=== PATIENT | female | born 1950 | race Caucasian/White ===

== ENCOUNTER 2019-08-23 22:21 | Observation (INO) | payer MEDICARE ==
--- NOTE | 2019-08-24 01:39 | XRay Report ---
CHEST 2 VIEWS INDICATION / CLINICAL INFORMATION: syncope. COMPARISON: None available. FINDINGS: SUPPORT DEVICES: None. HEART / MEDIASTINUM: Cardiomegaly with enlargement of bilateral pulmonary arteries suggesting pulmona ry arterial hypertension. Probable ASD closure device in place. LUNGS / PLEURA: Mild vascular congestion. No focal pulmonary consolidation. No large pleural effusion . No pneumothorax. ADDITIONAL FINDINGS: No significant additional findings. IMPRESSION: 1. Cardiomegaly with dilated pulmonary arteries suggesting pulmonary arterial hypertension. Mild vasc ular congestion. Signer Name: Shazia Silva MD Signed: 08/24/2019 1:35 AM Workstation Name: [id number]
[2019-08-24 02:00] LABS: Basophils # (Auto) 0.1 K/mm3 (0.0-0.1); Basophils % (Auto) 0.8 % (0.0-1.8); Eosinophils # (Auto) 0.2 K/mm3 (0.0-0.4); Eosinophils % (Auto) 3.3 % (0.0-4.3); Hematocrit 38.5 % (30.3-42.9); Hemoglobin 12.9 gm/dl (10.1-14.3); Lymphocytes # (Auto) 2.1 K/mm3 (1.2-5.4); Lymphocytes % (Auto) 29.3 % (13.4-35.0); Mean Corpuscular HGB Conc 34 % (30-34); Mean Corpuscular Volume 85 fl (79-97); Monocytes # (Auto) 0.5 K/mm3 (0.0-0.8); Monocytes % (Auto) 6.5 % (0.0-7.3); Platelet Count 243 K/mm3 (140-440); Red Blood Count 4.51 M/mm3 (3.65-5.03); Red Cell Distribution Width 15.5 % (13.2-15.2)
[2019-08-24 02:14] LABS: Alanine Aminotransferase 39 units/L (7-56); Albumin 4.3 g/dL (3.9-5); BUN/Creatinine Ratio 22; Bilirubin,Direct 0.2 mg/dL (0-0.2); Blood Urea Nitrogen 13 mg/dL (7-17); Calcium 8.8 mg/dL (8.4-10.2); Hemolysis Index 4
[2019-08-24 02:47] LABS: INR 1.07 (0.87-1.13); Partial Thromboplastin Time 30.3 Sec. (24.2-36.6)
--- NOTE | 2019-08-24 02:52 | Emergency Department Report ---
ED Syncope HPI - General Chief Complaint: Dizziness Stated Complaint: SYNCOPAL EPISODE Time Seen by Provider: 08/24/19 00:58 Source: patient, EMS, RN notes reviewed Exam Limitations: language barrier (pt speaks Laotian) - History of Present Illness Initial Comments: 69-year-old female with history of hypertension, diabetes, "hole in heart", and possibly vertigo, presents to ED following a syncopal episode earlier tonight. Patient states that she gets dizzy often. Patient reports she was given medication for this dizziness which she has run out of. States she was told ngoc t it was due to a problem inside her ear. Today, patient states she felt dizzy, like all of her previous episodes, however patient states she fell to the ground with this dizziness. She denies loss of consciousness. She states she hurt her neck when she fell. Patient has a history of chronic neck and back pain for which she is scheduled to begin physical therapy. Patient states she is on Eliq uis for "a hole" in her heart. Patient denies having an irregular heartbeat. Patient denies headache, nausea or vomiting. She denies any weakness, speech changes, vision changes, numbness or tingling in the face or extremities. Patient states that she took her blood pressure at home systolic BP was in the 200s so she called EMS. Patient states she took her blood pressure medication prior to ED arrival. Patient states she is feeling much better at this time and is ready to go home since her blood pressure has improved. 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 Negative: blurred vision, confusion, diaphoresis, nausea, rapid heart beat Context: standing Loss of Consciousness: no loss of consciousness Current Symptoms: dizziness. denies: blurred vision, chest pain, diaphoresis, headache, loss of bladder control, nausea - Related Data Allergies/Adverse Reactions: Allergies aspirin Allergy (Verified 08/23/19 22:55) Unknown codeine Allergy (Verified 08/23/19 22:55) Unknown Penicillins Allergy (Verified 08/23/19 22:55) Unknown ED Review of Systems ROS: Stated complaint: SYNCOPAL EPISODE Other details as noted in HPI Comment: All other systems reviewed and negative Constitutional: denies: chills, fever Respiratory: denies: cough, shortness of breath Cardiovascular: denies: chest pain, palpitations Gastrointestinal: denies: abdominal pain, nausea, vomiting, diarrhea Musculoskeletal: other (reports neck pain) Neurological: denies: headache, weakness, numbness, paresthesias ED Past Medical Hx - Past Medical History Hx Hypertension: Yes Hx Diabetes: Yes ED Physical Exam - General Limitations: No Limitations General appearance: alert, in no apparent distress - Head Head exam: Present: atraumatic, normocephalic, normal inspection - Eye Eye exam: Present: normal appearance, PERRL, EOMI - ENT ENT exam: Present: mucous membranes moist - Neck Neck exam: Present: normal inspection, tenderness (bilateral posterior paraspinal), full ROM - Respiratory Respiratory exam: Present: normal lung sounds bilaterally. Absent: respiratory distress - Cardiovascular Cardiovascular Exam: Present: normal rhythm, bradycardia - GI/Abdominal GI/Abdominal exam: Present: soft. Absent: distended, tenderness - Extremities Exam Extremities exam: Present: normal inspection. Absent: pedal edema, calf tenderness - Back Exam Back exam: Present: normal inspection. Absent: vertebral tenderness - Neurological Exam Neurological exam: Present: alert, oriented X3, CN II-XII intact, normal gait. Absent: motor sensory deficit - Psychiatric Psychiatric exam: Present: normal affect, normal mood - Skin Skin exam: Present: warm, dry, intact, normal color ED Course Vital Signs 08/23/19 08/24/19 08/24/19 23:36 03:36 03:39 Temperature 98.0 F 98 F 98 F Pulse Rate 52 L 69 69 Respiratory 16 20 18 Rate Blood Pressure 165/67 129/78 Blood Pressure 129/78 [Left] O2 Sat by Pulse 93 98 98 Oximetry ED Medical Decision Making - Lab Data Result diagrams: 08/24/19 01:35 08/24/19 01:35 - EKG Data -: EKG Interpreted by Ca EKG shows normal: axis, intervals, QRS complexes, ST-T waves Rate: bradycardia (rate 51) - EKG Data Interpretation: other (atrial flutter) - Radiology Data Radiology results: report reviewed, image reviewed - Medical Decision Making 59-year-old female presents to ED following what sounds like a syncopal episode. Patient has no neuro deficits at this time. CT head and neck are both unremarkable for any acute findings. CXR normal. Labs are normal, including troponin and d-dimer. EKG shows atrial flutter with a rate of 51. No previous EKG for comparison. This may be the reason that patient is on Eliquis. Patient is not on any beta blockers, only takes lisinopril pressure. Also takes furosemide. It is unclear if her dizziness could possibly be due to her bradycardia. Patient has not been hypotensive. Blood pressure is normal. Will admit to hospitalist for further evaluation. - Differential Diagnosis arrythmia, intracranial bleed, c-spine fx, ACS Critical care attestation.: If time is entered above; I have spent that time in minutes in the direct care of this critically ill patient, excluding procedure time. ED Disposition Clinical Impression: Syncope Disposition: OP ADMIT IP TO THIS HOSP Is pt being admited?: Yes Condition: Stable Instructions: Syncope (ED) Referrals: PRIMARY CARE, [Primary Care Provider] - 3-5 Days Time of Disposition: 03:36
--- NOTE | 2019-08-24 03:04 | Cat Scan Report ---
CT CERVICAL SPINE WITHOUT CONTRAST INDICATION / CLINICAL INFORMATION: pain. TECHNIQUE: Axial CT images were obtained through the cervical spine. Sagittal and coronal reformatted images wer e produced. All CT scans at this location are performed using CT dose reduction for ALARA by means of automated exposure control. COMPARISON: None available. FINDINGS: VERTEBRAE: No significant abnormality. ALIGNMENT: No significant abnormality. DISC SPACES: Mild disc height loss with anterior osteophytes from C5 through C7. FACET JOINTS: Mild left uncovertebral and facet hypertrophy at C5-C6 without significant foraminal na rrowing. CRANIOCERVICAL JUNCTION:No significant abnormality. SPINAL CANAL: No significant abnormality. PARASPINAL SOFT TISSUES: No significant abnormality. ADDITIONAL FINDINGS: None. LUNG APICES: No significant abnormality of visualized lungs. IMPRESSION: 1. No acute abnormality identified within the cervical spine. Mild degenerative disc disease. Signer Name: Shazia Silva MD Signed: 08/24/2019 3:00 AM Workstation Name: [id number]
--- NOTE | 2019-08-24 03:08 | Cat Scan Report ---
CT head/brain wo con INDICATION: dizziness, head injury. TECHNIQUE: Routine CT head without contrast. All CT scans at this location are performed using CT dos e reduction for ALARA by means of automated exposure control. COMPARISON: None. FINDINGS: BRAIN / INTRACRANIAL CONTENTS: No acute hemorrhage, mass effect, midline shift, or hydrocephalus. No appreciable acute large territorial or lacunar infarct. A small focal area of hypoattenuation in the deep cerebral white matter of the right parietal lobe has the appearance of encephalomalacia. ORBITS: No significant abnormality of visualized orbits. SINUSES / MASTOIDS: No significant abnormality of visualized sinuses and mastoid air cells. ADDITIONAL FINDINGS: None. IMPRESSION: 1. No acute intracranial abnormality on noncontrast CT of the brain. 2. Small area of encephalomalacia in the right parietal lobe. Signer Name: Shazia Silva MD Signed: 08/24/2019 3:03 AM Workstation Name: [id number]
--- NOTE | 2019-08-24 05:44 | History and Physical Report ---
History of Present Illness Chief complaint: I was dizzy and that I fell down History of present illness: 69-year-old woman with history of hypertension diabetes, "a hole in her heart", atrial flutter who presents to the hospital stating that she is been having multiple episodes of dizziness.. She had taken medication for dizziness in the past which she has run out of. States that she has been feeling dizzy on and off for quite a while, 4 weeks or perhaps months. However unlike the previous episodes this time the patient was so dizzy that she fell to the ground, she did not lose consciousness but she states that she hurt her neck with the fall. She also has a history of chronic neck and back pain for which she is scheduled to start physical therapy., She takes Eliquis given the hole in her heart. She a lso notes that she rushed to the hospital because her blood pressure was very high with a systolic in the 200s when she checked at home Past History Past Medical History: other (Atrial flutter, hypertension, diabetes, insulin- dependent) Past Surgical History: Other (States that she had a heart procedure done by Dr. Cardozo of [facility]) Social history: no significant social history, lives with family Family history: other (She states that she has multiple family members with h eart problems, she is unable to give further details) Medications and Allergies Allergies Allergy/AdvReac Type Severity Reaction Status Date / Time aspirin Allergy Unknown Verified 08/23/19 22:55 codeine Allergy Unknown Verified 08/23/19 22:55 Penicillins Allergy Unknown Verified 08/23/19 22:55 Home Medications Medication Instructions Recorded Confirmed Last Taken Type Apixaban [Eliquis] 5 mg PO BID 08/24/19 08/24/19 Unknown History Furosemide [Lasix TAB] 40 mg PO QDAY 08/24/19 08/24/19 Unknown History Insulin Glargine [Lantus VIAL] 35 units SQ QHS 08/24/19 08/24/19 Unknown History Lisinopril [Zestril TAB] 10 mg PO 08/24/19 Unknown History Lispro Insulin [HumaLOG] 20 units SQ QAC 08/24/19 08/24/19 Unknown History Simvastatin 40 mg PO QDAY 08/24/19 08/24/19 Unknown History Review of Systems All systems: negative Constitutional: no fatigue Ears, nose, mouth and throat: no ear pain Breasts: deferred Cardiovascular: no chest pain Respiratory: no cough Gastrointestinal: no abdominal pain Rectal: no pain Musculoskeletal: no neck stiffness Integumentary: no rash Neurological: no head injury Psychiatric: no anxiety Endocrine: no cold intolerance Hematologic/Lymphatic: no easy bruising Allergic/Immunologic: no urticaria Exam - Constitutional Vitals: Temp Pulse Resp BP Pulse Ox 98 F 69 18 129/78 98 08/24/19 03:39 08/24/19 03:39 08/24/19 03:39 08/24/19 03:39 08/24/19 03:39 General appearance: Present: no acute distress, well-nourished - EENT Eyes: Present: PERRL ENT: hearing intact, clear oral mucosa - Neck Neck: Present: supple, normal ROM - Respiratory Respiratory effort: normal Respiratory: bilateral: CTA - Cardiovascular Heart Sounds: Present: S1 & S2. Absent: rub, click - Extremities Extremities: pulses symmetrical, No edema Peripheral Pulses: within normal limits - Abdominal General gastrointestinal: Present: soft, non-tender, non-distended, normal bowel sounds Female genitourinary: Present: normal - Integumentary Integumentary: Present: clear, warm, dry - Musculoskeletal Musculoskeletal: gait normal, strength equal bilaterally - Psychiatric Psychiatric: appropriate mood/affect, intact judgment & insight - Neurologic Neurologic: CNII-XII intact, moves all extremities Results - Labs CBC & Chem 7: 08/24/19 01:35 08/24/19 01:35 Labs: Laboratory Last Values WBC 7.2 K/mm3 (4.5-11.0) 08/24/19 01:35 RBC 4.51 M/mm3 (3.65-5.03) 08/24/19 01:35 Hgb 12.9 gm/dl (10.1-14.3) 08/24/19 01:35 Hct 38.5 % (30.3-42.9) 08/24/19 01:35 MCV 85 fl (79-97) 08/24/19 01:35 MCH 29 pg (28-32) 08/24/19 01:35 MCHC 34 % (30-34) 08/24/19 01:35 RDW 15.5 % (13.2-15.2) H 08/24/19 01:35 Plt Count 243 K/mm3 (140-440) 08/24/19 01:35 Lymph % (Auto) 29.3 % (13.4-35.0) 08/24/19 01:35 [place] % (Auto) 6.5 % (0.0-7.3) 08/24/19 01:35 Eos % (Auto) 3.3 % (0.0-4.3) 08/24/19 01:35 Baso % (Auto) 0.8 % (0.0-1.8) 08/24/19 01:35 Lymph # 2.1 K/mm3 (1.2-5.4) 08/24/19 01:35 [place] # 0.5 K/mm3 (0.0-0.8) 08/24/19 01:35 Eos # 0.2 K/mm3 (0.0-0.4) 08/24/19 01:35 Baso # 0.1 K/mm3 (0.0-0.1) 08/24/19 01:35 Seg Neutrophils % 60.1 % (40.0-70.0) 08/24/19 01:35 Seg Neutrophils # 4.4 K/mm3 (1.8-7.7) 08/24/19 01:35 PT 13.6 Sec. (12.2-14.9) 08/24/19 01:35 INR 1.07 (0.87-1.13) 08/24/19 01:35 APTT 30.3 Sec. (24.2-36.6) 08/24/19 01:35 D-Dimer 184.44 ng/mlDDU (0-234) 08/24/19 01:35 Sodium 145 mmol/L (137-145) 08/24/19 01:35 Potassium 4.8 mmol/L (3.6-5.0) 08/24/19 01:35 Chloride 105.6 mmol/L (98-107) 08/24/19 01:35 Carbon Dioxide 27 mmol/L (22-30) 08/24/19 01:35 Anion Gap 17 mmol/L 08/24/19 01:35 BUN 13 mg/dL (7-17) 08/24/19 01:35 Creatinine 0.6 mg/dL (0.7-1.2) L 08/24/19 01:35 Estimated GFR > 60 ml/min 08/24/19 01:35 BUN/Creatinine Ratio 22 % 08/24/19 01:35 Glucose 182 mg/dL (65-100) H 08/24/19 01:35 Calcium 8.8 mg/dL (8.4-10.2) 08/24/19 01:35 Total Bilirubin 0.70 mg/dL (0.1-1.2) 08/24/19 01:35 Direct Bilirubin 0.2 mg/dL (0-0.2) 08/24/19 01:35 Indirect Bilirubin 0.5 mg/dL 08/24/19 01:35 AST 20 units/L (5-40) 08/24/19 01:35 ALT 39 units/L (7-56) 08/24/19 01:35 Alkaline Phosphatase 50 units/L (35-129) 08/24/19 01:35 Troponin T < 0.010 ng/mL (0.00-0.029) 08/24/19 01:35 Total Protein 7.0 g/dL (6.3-8.2) 08/24/19 01:35 Albumin 4.3 g/dL (3.9-5) 08/24/19 01:35 Albumin/Globulin Ratio 1.6 % 08/24/19 01:35 Assessment and Plan Assessment and plan: 69-year-old woman with history of hypertension diabetes, "a hole in her heart", atrial flutter who presents to the hospital stating that she is been having multiple episodes of dizziness.. She presents after a fall which she feels was caused by dizziness, she did not lose consciousness, but she did hurt her neck. Chest x-ray cardiomegaly with this dilated pulmonary arteries suggesting pulmonary arterial hypertension, mild vascular congestion -CT C-spine, no acute abnormalities identified within the cervical spine mild degenerative disc disease CT head no acute intracranial abnormality, small area of encephalomalacia in the right parietal lobe Transient autonomic imbalance/dizziness Patient is not on any AV karlos agents, cardiology consult, monitor on telemetry, echocardiogram Bradycardia/atrial flutter Patient is not on any AV karlos agents, cardiology consult, monitor on telemetry, echocardiogram "hole in the heart" Follow-up echo Hypertensive urgency Optimize BP meds, avoid AV karlos blocking agents BPmax was 165/67 w pulse of 52, IV BP meds prn, recent blood pressure is normal Type 2 diabetes SSI Preventative health counseling performed for 17 minutes DVT prophylaxis; fully anticoagulated Plan of care discussed with patient/family: Yes
[2019-08-24] MEDS ORDERED: DEXTROSE 50% IN WATER (25GM) 50 ML SYRINGE IV PRN (05:45)
[2019-08-24] MEDS ORDERED: ACETAMINOPHEN 325 MG TAB PO PRN (05:48)
[2019-08-24] MEDS ORDERED: ONDANSETRON 4 MG/2 ML INJ IV PRN (05:48)
[2019-08-24] MEDS ORDERED: INSULIN LISPRO 100 UNIT/ML SUB-Q ONE ×5 (07:30→08:52)
[2019-08-24 07:55] LABS: Bacteria,Urine 1+ /HPF (Negative); Bilirubin,Urine NEG (Negative); Blood,Urine NEG (Negative); Color,Urine Yellow (Yellow); Protein,Urine <15 mg/dL mg/dL (Negative); Urobilinogen,Urine < 2.0 mg/dL (<2.0)
[2019-08-24] MEDS: INSULIN LISPRO 100 UNIT/ML SUB-Q SCH ×7 (08:53→21:21)
--- NOTE | 2019-08-24 10:34 | Consultation ---
<SHAAN PARMAR - Last Filed: 08/24/19 10:34> History of Present Illness Consult date: 08/24/19 Consult reason: other (Aflutter, Near syncope) History of present illness: This is a 69-year old woman with persistent atrial flutter status post unsuccessful attempt at ablation and patient declined repeat attempt. Patient is not on beta blockers due to slow ventricular conduction response. Anticoagulated with eliquis. Patient has a history of atrial septal defect status post closure in 2011. Her latest echocardiogram reports a normal left ventricular systolic function, ejection fraction 50%. Co-morbidities includes hypertension, diabetes and hyperlipidemia. Patient presents to the hospital with dizziness, admitted with near syncope. Patient reports intermittent dizziness for several months. Blood pressure 165/67 on presentation. Patient denies chest pain, unusual shortness of breath and palpitations. Patient denies loss of consciousness. 12 lead ECG is atrial flutter with a slow ventricular response, rate 51. Past History Past Medical History: other (Atrial flutter, hypertension, diabetes, insulin- dependent) Social history: no significant social history, lives with family Family history: other (She states that she has multiple family members with heart problems, she is unable to give further details) Medications and Allergies Allergies Allergy/AdvReac Type Severity Reaction Status Date / Time aspirin Allergy Unknown Verified 08/23/19 22:55 codeine Allergy Unknown Verified 08/23/19 22:55 Penicillins Allergy Unknown Verified 08/23/19 22:55 Home Medications Medication Instructions Recorded Confirmed Last Taken Type Apixaban [Eliquis] 5 mg PO BID 08/24/19 08/24/19 Unknown History Furosemide [Lasix TAB] 40 mg PO QDAY 08/24/19 08/24/19 Unknown History Insulin Glargine [Lantus VIAL] 35 units SQ QHS 08/24/19 08/24/19 Unknown History Lisinopril [Zestril TAB] 10 mg PO 08/24/19 Unknown History Lispro Insulin [HumaLOG] 20 units SQ QAC 08/24/19 08/24/19 Unknown History Simvastatin 40 mg PO QDAY 08/24/19 08/24/19 Unknown History Active Meds: Active Medications Acetaminophen (Tylenol) 650 mg PO Q4H PRN PRN Reason: Pain MILD(1-3)/Fever >100.5/NGUYEN Apixaban (Eliquis) 5 mg PO BID [facility]; Protocol Dextrose (D50w (25gm) Syringe) 50 ml IV PRN PRN PRN Reason: Hypoglycemia Furosemide (Lasix) 40 mg PO QDAY [facility] Insulin Glargine (Lantus) 35 units SUB-Q QHS [facility] Insulin Human Lispro (Humalog) 20 unit SUB-Q QAC [facility] Last Admin: 08/24/19 08:53 Dose: 20 unit Documented by: Insulin Human Lispro (Humalog) 0 unit SUB-Q ACHS [facility]; Protocol Last Admin: 08/24/19 08:53 Dose: 2 unit Documented by: Lisinopril (Zestril) 10 mg PO DAILY [facility] Ondansetron HCl (Zofran) 4 mg IV Q8H PRN PRN Reason: Nausea And Vomiting Pravastatin Sodium (Pravachol) 80 mg PO QHS [facility] Sodium Chloride (Sodium Chloride Flush Syringe 10 Ml) 10 ml IV BID [facility] Sodium Chloride (Sodium Chloride Flush Syringe 10 Ml) 10 ml IV PRN PRN PRN Reason: LINE FLUSH Physical Examination Vital Signs Temp Pulse Resp BP Pulse Ox 98.0 F 52 L 16 165/67 93 08/23/19 23:36 08/23/19 23:36 08/23/19 23:36 08/23/19 23:36 08/23/19 23:36 General appearance: no acute distress HEENT: Positive: PERRL Neck: Positive: trachea midline Cardiac: Positive: irregularly irregular Lungs: Positive: Normal Breath Sounds Neuro: Positive: Grossly Intact Abdomen: Positive: Soft Extremities: Absent: edema Results 08/24/19 01:35 08/24/19 01:35 Cardiac Enzymes 08/24/19 Range/Units 01:35 AST 20 (5-40) units/L Coagulation 08/24/19 Range/Units 01:35 PT 13.6 (12.2-14.9) Sec. INR 1.07 (0.87-1.13) APTT 30.3 (24.2-36.6) Sec. CBC 08/24/19 Range/Units 01:35 WBC 7.2 (4.5-11.0) K/mm3 RBC 4.51 (3.65-5.03) M/mm3 Hgb 12.9 (10.1-14.3) gm/dl Hct 38.5 (30.3-42.9) % Plt Count 243 (140-440) K/mm3 Lymph # 2.1 (1.2-5.4) K/mm3 [place] # 0.5 (0.0-0.8) K/mm3 Eos # 0.2 (0.0-0.4) K/mm3 Baso # 0.1 (0.0-0.1) K/mm3 Comprehensive Metabolic Panel 08/24/19 Range/Units 01:35 Sodium 145 (137-145) mmol/L Potassium 4.8 (3.6-5.0) mmol/L Chloride 105.6 (98-107) mmol/L Carbon Dioxide 27 (22-30) mmol/L BUN 13 (7-17) mg/dL Creatinine 0.6 L (0.7-1.2) mg/dL Glucose 182 H (65-100) mg/dL Calcium 8.8 (8.4-10.2) mg/dL Direct Bilirubin 0.2 (0-0.2) mg/dL Indirect Bilirubin 0.5 mg/dL AST 20 (5-40) units/L ALT 39 (7-56) units/L Alkaline Phosphatase 50 (35-129) units/L Total Protein 7.0 (6.3-8.2) g/dL Albumin 4.3 (3.9-5) g/dL Assessment and Plan Near syncope Atrial flutter, persistent on eliquis for oral anticoagulation rate controlled without beta blockers Hypertension Diabetes HLP Recommend: Check TSH, free T4 and a magnesium. Check carotids. Continue telemetry monitoring. <JARAD IRENE - Last Filed: 08/24/19 20:51> Medications and Allergies Active Meds: Active Medications Acetaminophen (Tylenol) 650 mg PO Q4H PRN PRN Reason: Pain MILD(1-3)/Fever >100.5/NGUYEN Apixaban (Eliquis) 5 mg PO BID [facility]; Protocol Last Admin: 08/24/19 14:40 Dose: 5 mg Documented by: Dextrose (D50w (25gm) Syringe) 50 ml IV PRN PRN PRN Reason: Hypoglycemia Furosemide (Lasix) 40 mg PO QDAY [facility] Last Admin: 08/24/19 14:40 Dose: 40 mg Documented by: Insulin Glargine (Lantus) 35 units SUB-Q QHS [facility] Insulin Human Lispro (Humalog) 20 unit SUB-Q QAC [facility] Last Admin: 08/24/19 17:34 Dose: 20 unit Documented by: Insulin Human Lispro (Humalog) 0 unit SUB-Q ACHS [facility]; Protocol Last Admin: 08/24/19 17:35 Dose: 3 unit Documented by: Lisinopril (Zestril) 10 mg PO DAILY [facility] Last Admin: 08/24/19 14:40 Dose: 10 mg Documented by: Ondansetron HCl (Zofran) 4 mg IV Q8H PRN PRN Reason: Nausea And Vomiting Pravastatin Sodium (Pravachol) 80 mg PO QHS [facility] Sodium Chloride (Sodium Chloride Flush Syringe 10 Ml) 10 ml IV BID [facility] Last Admin: 08/24/19 14:40 Dose: 10 ml Documented by: Sodium Chloride (Sodium Chloride Flush Syringe 10 Ml) 10 ml IV PRN PRN PRN Reason: LINE FLUSH Physical Examination Vital Signs Temp Pulse Resp BP Pulse Ox 98.0 F 52 L 16 165/67 93 08/23/19 23:36 08/23/19 23:36 08/23/19 23:36 08/23/19 23:36 08/23/19 23:36 Results 08/24/19 01:35 08/24/19 01:35 Cardiac Enzymes 08/24/19 Range/Units 01:35 AST 20 (5-40) units/L Coagulation 08/24/19 Range/Units 01:35 PT 13.6 (12.2-14.9) Sec. INR 1.07 (0.87-1.13) APTT 30.3 (24.2-36.6) Sec. CBC 08/24/19 Range/Units 01:35 WBC 7.2 (4.5-11.0) K/mm3 RBC 4.51 (3.65-5.03) M/mm3 Hgb 12.9 (10.1-14.3) gm/dl Hct 38.5 (30.3-42.9) % Plt Count 243 (140-440) K/mm3 Lymph # 2.1 (1.2-5.4) K/mm3 [place] # 0.5 (0.0-0.8) K/mm3 Eos # 0.2 (0.0-0.4) K/mm3 Baso # 0.1 (0.0-0.1) K/mm3 Comprehensive Metabolic Panel 08/24/19 Range/Units 01:35 Sodium 145 (137-145) mmol/L Potassium 4.8 (3.6-5.0) mmol/L Chloride 105.6 (98-107) mmol/L Carbon Dioxide 27 (22-30) mmol/L BUN 13 (7-17) mg/dL Creatinine 0.6 L (0.7-1.2) mg/dL Glucose 182 H (65-100) mg/dL Calcium 8.8 (8.4-10.2) mg/dL Direct Bilirubin 0.2 (0-0.2) mg/dL Indirect Bilirubin 0.5 mg/dL AST 20 (5-40) units/L ALT 39 (7-56) units/L Alkaline Phosphatase 50 (35-129) units/L Total Protein 7.0 (6.3-8.2) g/dL Albumin 4.3 (3.9-5) g/dL Assessment and Plan I have seen and evaluated the patient and agree with the assessment and plan. The patient presents with Near syncope. The patient has a hsitory of persistent atrial flutter on eliquis for anticoagulation, HTN, DM2, and HLD. Recommend check TSH, free T4 and magnesium. Check carotid dopplers. Continue current medical therapy for treatment of atrial flutter and eliquis.
--- NOTE | 2019-08-24 14:28 | Vascular Lab Report ---
BILATERAL CAROTID DOPPLER ULTRASOUND INDICATION : Dizziness, syncope TECHNIQUE: Grayscale and color Doppler imaging performed through the neck. COMPARISON: None FINDINGS: Right: There is no significant atherosclerotic disease. Peak systolic velocity in the CCA is 64 cm/ s with end-diastolic velocity of 15 cm/s. Peak systolic velocity in the proximal ICA is 19 cm/s with end-diastolic velocity of 34 cm/s. ICA to CCA ratio is less than 2. There is antegrade flow in the E CA and the vertebral artery. Left: There is mild elongated echogenic plaque in the carotid bulb. Peak systolic velocity in the CCA is 68 cm/s with end-diastolic velocity of 14 cm/s. Peak systolic velocity in the proximal ICA is 92 cm/s with end-diastolic velocity of 26 cm/s. ICA to CCA ratio is less than 2. There is antegrade amish w in the ECA and the vertebral artery. IMPRESSION: No hemodynamically significant stenosis by NASCET criteria. There is less than 50% lumina l narrowing in the bilateral carotid systems. Signer Name: Valentin Oliva Jr, MD Signed: 08/24/2019 2:23 PM Workstation Name: [id number]
[2019-08-24] MEDS: FUROSEMIDE 40 MG TAB PO SCH (14:40)
[2019-08-24] MEDS: APIXABAN 5 MG TAB PO SCH ×2 (14:40→21:20)
[2019-08-24] MEDS: LISINOPRIL 10 MG TAB PO SCH (14:40)
--- NOTE | 2019-08-24 15:03 | Progress Note ---
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 She gives a history of fall, she did not lose consciousness, so CT spine was done. Unable to do brain MRI because of noncompatible Lower back metal nerve stimulator * Chest x-ray cardiomegaly with this dilated pulmonary arteries suggesting pulmonary arterial hypertension, mild vascular congestion * CT C-spine, no acute abnormalities identified within the cervical spine mild degenerative disc disease * CT head no acute intracranial abnormality, small area of encephalomalacia in the right parietal lobe * Carotid US dopper reports no hemodynically significant stenosis -Transient autonomic imbalance/dizziness, ECHO pending -Bradycardia/atrial flutter, Patient is not on any AV karlos agents, cardiology consult, input noted, monitor on telemetry, echocardiogram pending -Hypertensive urgency, Optimize BP meds, avoid AV karlos blocking agents, BPmax was 165/67 w pulse of 52, IV BP meds prn -Type 2 diabetes: ada diet, SSI DVT prophylaxis; fully anticoagulated Prolonged inpatient services 35 minutes History Interval history: Patient was seen and examined. Follow-up on current diagnosis of near Syncope and dizziness. No overnight events reported to me. Patient denies any chest pain, shortness breath, nausea/vomiting or severe headaches. Imaging, nursing note, chart, labs and old chart reviewed. Discussed with patient using friend John as [place] vacuum drum drier operator per patient request. Hospitalist Physical - Physical exam Narrative exam: Gen: WDWN, NAD, Awake, Alert, Orientated HEENT: NCAT, EOMI, PERRL, OP Clear Neck: supple, no adenopathy, no thyromegaly, no JVD CVS/Heart: regular irregular, normal S1S2, pulses present bilaterally Chest/Lungs: diminished bs Bilaterally, Symmetrical chest expansion, good air entry bilaterally GI/Abdomen: soft, NTND, good bowel sounds, no guarding or rebound /Bladder: no suprapubic tenderness, no CVA or paraspinal tenderness Extermity/Skin: no c/c/e, no obvious rash MSK: FROM x 4 Neuro: CN 2-12 grossly intact, no new focal deficits Psych: calm - Constitutional Vitals: Temp Pulse Resp BP Pulse Ox 98 F 51 L 21 160/63 96 08/24/19 03:39 08/24/19 09:16 08/24/19 09:16 08/24/19 09:16 08/24/19 09:16 General appearance: Present: no acute distress Results - Labs CBC & Chem 7: 08/24/19 01:35 08/24/19 01:35 Labs: Laboratory Last Values WBC 7.2 K/mm3 (4.5-11.0) 08/24/19 01:35 RBC 4.51 M/mm3 (3.65-5.03) 08/24/19 01:35 Hgb 12.9 gm/dl (10.1-14.3) 08/24/19 01:35 Hct 38.5 % (30.3-42.9) 08/24/19 01:35 MCV 85 fl (79-97) 08/24/19 01:35 MCH 29 pg (28-32) 08/24/19 01:35 MCHC 34 % (30-34) 08/24/19 01:35 RDW 15.5 % (13.2-15.2) H 08/24/19 01:35 Plt Count 243 K/mm3 (140-440) 08/24/19 01:35 Lymph % (Auto) 29.3 % (13.4-35.0) 08/24/19 01:35 [place]er % (Auto) 6.5 % (0.0-7.3) 08/24/19 01:35 Eos % (Auto) 3.3 % (0.0-4.3) 08/24/19 01:35 Baso % (Auto) 0.8 % (0.0-1.8) 08/24/19 01:35 Lymph # 2.1 K/mm3 (1.2-5.4) 08/24/19 01:35 Greer # 0.5 K/mm3 (0.0-0.8) 08/24/19 01:35 Eos # 0.2 K/mm3 (0.0-0.4) 08/24/19 01:35 Baso # 0.1 K/mm3 (0.0-0.1) 08/24/19 01:35 Seg Neutrophils % 60.1 % (40.0-70.0) 08/24/19 01:35 Seg Neutrophils # 4.4 K/mm3 (1.8-7.7) 08/24/19 01:35 PT 13.6 Sec. (12.2-14.9) 08/24/19 01:35 INR 1.07 (0.87-1.13) 08/24/19 01:35 APTT 30.3 Sec. (24.2-36.6) 08/24/19 01:35 D-Dimer 184.44 ng/mlDDU (0-234) 08/24/19 01:35 Sodium 145 mmol/L (137-145) 08/24/19 01:35 Potassium 4.8 mmol/L (3.6-5.0) 08/24/19 01:35 Chloride 105.6 mmol/L (98-107) 08/24/19 01:35 Carbon Dioxide 27 mmol/L (22-30) 08/24/19 01:35 Anion Gap 17 mmol/L 08/24/19 01:35 BUN 13 mg/dL (7-17) 08/24/19 01:35 Creatinine 0.6 mg/dL (0.7-1.2) L 08/24/19 01:35 Estimated GFR > 60 ml/min 08/24/19 01:35 BUN/Creatinine Ratio 22 % 08/24/19 01:35 Glucose 182 mg/dL (65-100) H 08/24/19 01:35 POC Glucose 196 (70-105) H 08/24/19 07:58 Hemoglobin A1c 7.7 % (4-6) H 08/24/19 06:00 Calcium 8.8 mg/dL (8.4-10.2) 08/24/19 01:35 Total Bilirubin 0.70 mg/dL (0.1-1.2) 08/24/19 01:35 Direct Bilirubin 0.2 mg/dL (0-0.2) 08/24/19 01:35 Indirect Bilirubin 0.5 mg/dL 08/24/19 01:35 AST 20 units/L (5-40) 08/24/19 01:35 ALT 39 units/L (7-56) 08/24/19 01:35 Alkaline Phosphatase 50 units/L (35-129) 08/24/19 01:35 Troponin T < 0.010 ng/mL (0.00-0.029) 08/24/19 05:52 Total Protein 7.0 g/dL (6.3-8.2) 08/24/19 01:35 Albumin 4.3 g/dL (3.9-5) 08/24/19 01:35 Albumin/Globulin Ratio 1.6 % 08/24/19 01:35 Urine Color Yellow (Yellow) 08/24/19 07:45 Urine Turbidity Clear (Clear) 08/24/19 07:45 Urine pH 7.0 (5.0-7.0) 08/24/19 07:45 Ur Specific [place] 1.011 (1.003-1.030) 08/24/19 07:45 Urine Protein <15 mg/dl mg/dL (Negative) 08/24/19 07:45 Urine Glucose (UA) Neg mg/dL (Negative) 08/24/19 07:45 Urine Ketones Neg mg/dL (Negative) 08/24/19 07:45 Urine Blood Neg (Negative) 08/24/19 07:45 Urine Nitrite Neg (Negative) 08/24/19 07:45 Urine Bilirubin Neg (Negative) 08/24/19 07:45 Urine Urobilinogen < 2.0 mg/dL (<2.0) 08/24/19 07:45 Ur Leukocyte Esterase Tr (Negative) 08/24/19 07:45 Urine WBC (Auto) 4.0 /HPF (0.0-6.0) 08/24/19 07:45 Urine RBC (Auto) 3.0 /HPF (0.0-6.0) 08/24/19 07:45 U Epithel Cells (Auto) 1.0 /HPF (0-13.0) 08/24/19 07:45 Urine Bacteria (Auto) 1+ /HPF (Negative) 08/24/19 07:45 Active Medications - Current Medications Current Medications: Generic Name Dose Route Start Last Admin Trade Name Freq PRN Reason Stop Dose Admin Acetaminophen 650 mg 08/24/19 05:48 Tylenol PO Q4H PRN Pain MILD(1-3)/Fever >100.5/NGUYEN Apixaban 5 mg 08/24/19 10:00 08/24/19 14:40 Eliquis PO 5 mg BID MANOHAR Administration Protocol Dextrose 50 ml 08/24/19 05:45 D50w (25gm) Syringe IV PRN PRN Hypoglycemia Furosemide 40 mg 08/24/19 10:00 08/24/19 14:40 Lasix PO 40 mg QDAY MANOHAR Administration Insulin Glargine 35 units 08/24/19 22:00 Lantus SUB-Q QHS [facility] Insulin Human Lispro 20 unit 08/24/19 07:30 08/24/19 14:41 Humalog SUB-Q Not Given QAC [facility] Insulin Human Lispro 0 unit 08/24/19 07:30 08/24/19 14:41 Humalog SUB-Q Not Given ACHS [facility] Protocol Lisinopril 10 mg 08/24/19 10:00 08/24/19 14:40 Zestril PO 10 mg DAILY MANOHAR Administration Ondansetron HCl 4 mg 08/24/19 05:48 Zofran IV Q8H PRN Nausea And Vomiting Pravastatin Sodium 80 mg 08/24/19 22:00 Pravachol PO QHS [facility] Sodium Chloride 10 ml 08/24/19 10:00 08/24/19 14:40 Sodium Chloride Flush Syringe 10 Ml IV 10 ml BID MANOHAR Administration Sodium Chloride 10 ml 08/24/19 05:48 Sodium Chloride Flush Syringe 10 Ml IV PRN PRN LINE FLUSH
[2019-08-24] MEDS ORDERED: PRAVASTATIN 80 MG TAB PO SCH (22:00)
[2019-08-24] MEDS ORDERED: INSULIN GLARGINE 100 UNITS/ML SUB-Q SCH (22:00)
[2019-08-24] MEDS ORDERED: POLYETHYLENE GLYCOL 3350 17 GM POWDER PO PRN (23:55)
[2019-08-25] MEDS: DOCUSATE SODIUM 100 MG CAP PO SCH ×2 (00:07→09:28)
[2019-08-25] MEDS: FUROSEMIDE 40 MG TAB PO SCH (09:28)
[2019-08-25] MEDS: LISINOPRIL 10 MG TAB PO SCH (09:28)
[2019-08-25] MEDS: APIXABAN 5 MG TAB PO SCH (09:28)
[2019-08-25] MEDS: INSULIN LISPRO 100 UNIT/ML SUB-Q SCH ×5 (09:29→13:19)
--- NOTE | 2019-08-25 11:09 | Progress Note ---
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 She gives a history of fall, she did not lose consciousness, so CT spine was done. Unable to do brain MRI because of noncompatible Lower back metal nerve stimulator * Chest x-ray cardiomegaly with this dilated pulmonary arteries suggesting pulmonary arterial hypertension, mild vascular congestion * CT C-spine, no acute abnormalities identified within the cervical spine mild degenerative disc disease * CT head no acute intracranial abnormality, small area of encephalomalacia in the right parietal lobe * Carotid US dopper reports no hemodynically significant stenosis -Transient autonomic imbalance/dizziness: treat conservatively, to rule out if bradycardia/aflutter causing the dizziness and ECHO still pending -Bradycardia/atrial flutter, Patient is not on any AV karlos agents, cardiology consult, input noted, monitor on telemetry, -Hypertensive urgency, Optimize BP meds, avoid AV karlos blocking agents, BPmax was 165/67 w pulse of 52, IV BP meds prn -Type 2 diabetes mellitus: ada diet, SSI -DVT prophylaxis; fully anticoag Disposition: continue observational care, d/c once cleared by Cardiology and ECHO is read. History Interval history: Patient was seen and examined. Follow-up on current diagnosis of near Syncope and dizziness. No overnight events reported to me. Patient denies any chest feliciano n, shortness breath, nausea/vomiting or severe headaches. Imaging, nursing note, chart, labs and old chart reviewed. Discussed with patient using friend John as [employer] call center trainer using patient's phone per patient request. Hospitalist Physical - Physical exam Narrative exam: Gen: WDWN, NAD, Awake, Alert, Orientated HEENT: NCAT, EOMI, PERRL, OP Clear Neck: supple, no adenopathy, no thyromegaly, no JVD CVS/Heart: regular irregular, normal S1S2, pulses present bilaterally Chest/Lungs: diminished bs Bilaterally, Symmetrical chest expansion, good air entry bilaterally GI/Abdomen: soft, NTND, good bowel sounds, no guarding or rebound /Bladder: no suprapubic tenderness, no CVA or paraspinal tenderness Extermity/Skin: no c/c/e, no obvious rash MSK: FROM x 4 Neuro: CN 2-12 grossly intact, no new focal deficits Psych: calm - Constitutional Vitals: Temp Pulse Resp BP Pulse Ox 98.2 F 52 L 16 134/58 96 08/25/19 07:55 08/25/19 07:55 08/25/19 07:55 08/25/19 07:55 08/25/19 07:55 General appearance: Present: no acute distress Results - Labs CBC & Chem 7: 08/24/19 01:35 08/24/19 01:35 Labs: Laboratory Last Values WBC 7.2 K/mm3 (4.5-11.0) 08/24/19 01:35 RBC 4.51 M/mm3 (3.65-5.03) 08/24/19 01:35 Hgb 12.9 gm/dl (10.1-14.3) 08/24/19 01:35 Hct 38.5 % (30.3-42.9) 08/24/19 01:35 MCV 85 fl (79-97) 08/24/19 01:35 MCH 29 pg (28-32) 08/24/19 01:35 MCHC 34 % (30-34) 08/24/19 01:35 RDW 15.5 % (13.2-15.2) H 08/24/19 01:35 Plt Count 243 K/mm3 (140-440) 08/24/19 01:35 Lymph % (Auto) 29.3 % (13.4-35.0) 08/24/19 01:35 [place] % (Auto) 6.5 % (0.0-7.3) 08/24/19 01:35 Eos % (Auto) 3.3 % (0.0-4.3) 08/24/19 01:35 Baso % (Auto) 0.8 % (0.0-1.8) 08/24/19 01:35 Lymph # 2.1 K/mm3 (1.2-5.4) 08/24/19 01:35 Rhea # 0.5 K/mm3 (0.0-0.8) 08/24/19 01:35 Eos # 0.2 K/mm3 (0.0-0.4) 08/24/19 01:35 Baso # 0.1 K/mm3 (0.0-0.1) 08/24/19 01:35 Seg Neutrophils % 60.1 % (40.0-70.0) 08/24/19 01:35 Seg Neutrophils # 4.4 K/mm3 (1.8-7.7) 08/24/19 01:35 PT 13.6 Sec. (12.2-14.9) 08/24/19 01:35 INR 1.07 (0.87-1.13) 08/24/19 01:35 APTT 30.3 Sec. (24.2-36.6) 08/24/19 01:35 D-Dimer 184.44 ng/mlDDU (0-234) 08/24/19 01:35 Sodium 145 mmol/L (137-145) 08/24/19 01:35 Potassium 4.8 mmol/L (3.6-5.0) 08/24/19 01:35 Chloride 105.6 mmol/L (98-107) 08/24/19 01:35 Carbon Dioxide 27 mmol/L (22-30) 08/24/19 01:35 Anion Gap 17 mmol/L 08/24/19 01:35 BUN 13 mg/dL (7-17) 08/24/19 01:35 Creatinine 0.6 mg/dL (0.7-1.2) L 08/24/19 01:35 Estimated GFR > 60 ml/min 08/24/19 01:35 BUN/Creatinine Ratio 22 % 08/24/19 01:35 Glucose 182 mg/dL (65-100) H 08/24/19 01:35 POC Glucose 203 (70-105) H 08/25/19 08:05 Hemoglobin A1c 7.7 % (4-6) H 08/24/19 06:00 Calcium 8.8 mg/dL (8.4-10.2) 08/24/19 01:35 Magnesium 2.00 mg/dL (1.7-2.3) 08/24/19 14:36 Total Bilirubin 0.70 mg/dL (0.1-1.2) 08/24/19 01:35 Direct Bilirubin 0.2 mg/dL (0-0.2) 08/24/19 01:35 Indirect Bilirubin 0.5 mg/dL 08/24/19 01:35 AST 20 units/L (5-40) 08/24/19 01:35 ALT 39 units/L (7-56) 08/24/19 01:35 Alkaline Phosphatase 50 units/L (35-129) 08/24/19 01:35 Troponin T < 0.010 ng/mL (0.00-0.029) 08/24/19 14:36 Total Protein 7.0 g/dL (6.3-8.2) 08/24/19 01:35 Albumin 4.3 g/dL (3.9-5) 08/24/19 01:35 Albumin/Globulin Ratio 1.6 % 08/24/19 01:35 TSH 1.530 mlU/mL (0.270-4.200) 08/24/19 14:36 Free T4 1.53 ng/dL (0.76-1.46) H 08/24/19 14:36 Urine Color Yellow (Yellow) 08/24/19 07:45 Urine Turbidity Clear (Clear) 08/24/19 07:45 Urine pH 7.0 (5.0-7.0) 08/24/19 07:45 Ur Specific [place] 1.011 (1.003-1.030) 08/24/19 07:45 Urine Protein <15 mg/dl mg/dL (Negative) 08/24/19 07:45 Urine Glucose (UA) Neg mg/dL (Negative) 08/24/19 07:45 Urine Ketones Neg mg/dL (Negative) 08/24/19 07:45 Urine Blood Neg (Negative) 08/24/19 07:45 Urine Nitrite Neg (Negative) 08/24/19 07:45 Urine Bilirubin Neg (Negative) 08/24/19 07:45 Urine Urobilinogen < 2.0 mg/dL (<2.0) 08/24/19 07:45 Ur Leukocyte Esterase Tr (Negative) 08/24/19 07:45 Urine WBC (Auto) 4.0 /HPF (0.0-6.0) 08/24/19 07:45 Urine RBC (Auto) 3.0 /HPF (0.0-6.0) 08/24/19 07:45 U Epithel Cells (Auto) 1.0 /HPF (0-13.0) 08/24/19 07:45 Urine Bacteria (Auto) 1+ /HPF (Negative) 08/24/19 07:45 Active Medications - Current Medications Current Medications: Generic Name Dose Route Start Last Admin Trade Name Freq PRN Reason Stop Dose Admin Acetaminophen 650 mg 08/24/19 05:48 08/25/19 00:07 Tylenol PO 650 mg Q4H PRN Administration Pain MILD(1-3)/Fever >100.5/NGUYEN Apixaban 5 mg 08/24/19 10:00 08/25/19 09:28 Eliquis PO 5 mg BID MANOHAR Administration Protocol Dextrose 50 ml 08/24/19 05:45 D50w (25gm) Syringe IV PRN PRN Hypoglycemia Docusate Sodium 100 mg 08/24/19 23:45 08/25/19 09:28 Colace PO 100 mg BID MANHOAR Administration Furosemide 40 mg 08/24/19 10:00 08/25/19 09:28 Lasix PO 40 mg QDAY MANOHAR Administration Insulin Glargine 35 units 08/24/19 22:00 08/24/19 21:21 Lantus SUB-Q Not Given QHS [facility] Insulin Human Lispro 20 unit 08/24/19 07:30 08/25/19 09:30 Humalog SUB-Q 20 unit [facility] Administration Insulin Human Lispro 0 unit 08/24/19 07:30 08/25/19 09:35 Humalog SUB-Q Not Given ACHS [facility] Protocol Lisinopril 10 mg 08/24/19 10:00 08/25/19 09:28 Zestril PO 10 mg DAILY MANOHAR Administration Ondansetron HCl 4 mg 08/24/19 05:48 Zofran IV Q8H PRN Nausea And Vomiting Polyethylene Glycol 17 gm 08/24/19 23:55 Miralax 3350 PO QDAY PRN Constipation Pravastatin Sodium 80 mg 08/24/19 22:00 08/24/19 21:20 Pravachol PO 80 mg QHS MANOHAR Administration Sodium Chloride 10 ml 08/24/19 10:00 08/25/19 09:29 Sodium Chloride Flush Syringe 10 Ml IV 10 ml BID MANOHAR Administration Sodium Chloride 10 ml 08/24/19 05:48 Sodium Chloride Flush Syringe 10 Ml IV PRN PRN LINE FLUSH
--- NOTE | 2019-08-25 11:14 | Discharge Summary ---
Providers - Providers Date of Admission: 08/24/19 05:48 Date of discharge: 08/25/19 Attending physician: ZEFERINO VALADEZ 08/24/19 05:39 Consult to Cardiology [CONS] Routine Consulting Provider: ERIC HARRIS Reason For Exam: aflutter, javi, near syncope 08/24/19 05:50 Consult to Dietitian/Nutrition [CONS] Routine Physician Instructions: Reason For Exam: Reason for Consult: Diet education Primary care physician: DIRECTOR OF INSTITUTIONAL RESEARCH Hospitalization Condition: Stable Hospital course: Patient is a 69-year-old Laotian speaking woman with a history of persistent atrial flutter with unsuccessful ablation on anticoagulation with Eliquis, hypertension, type 2 DM, 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 She gives a history of fall, she did not lose consciousness, so CT spine was done. Patient symptoms most likely due to underlying Sick Sinus Syndrome and pacemaker will be done on Thursday, hold Eliquis per Cardiolgy. * Chest x-ray cardiomegaly with this dilated pulmonary arteries suggesting pulmonary arterial hypertension, mild vascular congestion * CT C-spine, no acute abnormalities identified within the cervical spine mild degenerative disc disease * CT head no acute intracranial abnormality, small area of encephalomalacia in the right parietal lobe * Carotid US dopper reports no hemodynically significant stenosis Discharge Diagnoses: -Sick Sinus Syndome with Bradycardia causing -Transient autonomic imbalance and dizziness -Persistent Atrial flutter -Hypertensive urgency -Type 2 diabetes mellitus -H/o CVA with right sided deficits -H/O Dyslipidemia -H/O ASD closure Disposition: CO-01 TO HOME OR SELFCARE Time spent for discharge: 35 minutes Core Measure Documentation - Palliative Care Palliative Care/ Comfort Measures: Not Applicable - Core Measures Any of the following diagnoses?: none - VTE Discharge Requirements Deep Vein Thrombosis/Pulmonary Embolism Present on Admission: No Has pt received <5 days of overlap therapy or INR<2.0: No Anticoagulant overlap therapy prescribed at discharge: No Contraindication No Overlap Therapy order at DC: Not Indicated Exam - Physical Exam Narrative exam: Gen: WDWN, NAD, Awake, Alert, Orientated HEENT: NCAT, EOMI, PERRL, OP Clear Neck: supple, no adenopathy, no thyromegaly, no JVD CVS/Heart: regular irregular with bradycardia, normal S1S2, pulses present bilaterally Chest/Lungs: diminished bs Bilaterally, Symmetrical chest expansion, good air entry bilaterally GI/Abdomen: soft, NTND, good bowel sounds, no guarding or rebound /Bladder: no suprapubic tenderness, no CVA or paraspinal tenderness Extermity/Skin: no c/c/e, no obvious rash MSK: FROM x 4 Neuro: CN 2-12 grossly intact, no new focal deficits Psych: calm - Constitutional Vitals: Temp Pulse Resp BP Pulse Ox 98.2 F 52 L 16 134/58 96 08/25/19 07:55 08/25/19 07:55 08/25/19 07:55 08/25/19 07:55 08/25/19 07:55 Plan Activity: up only with assistance, fall precautions, other (no strenous activity unless cleared by Cardiology, including driving) Diet: low salt, diabetic Special Instructions: record daily BP diary, record blood sugar diary (daily) Additional Instructions: DO NOT take Eliquis, for PACEMAKER with Dr. Cardozo on Thursday. Resume Eliquis, the blood thinner, when Cardiology say so. Follow up with: SEDRICK PAYAN MD [Primary Care Provider] - 3-5 Days JARETT CARDOZO MD [Staff Physician] - 08/29/19
--- NOTE | 2019-08-25 12:30 | Progress Note ---
Assessment and Plan Near syncope pt denies loss of consciousness Atrial flutter, persistent on eliquis for oral anticoagulation rate controlled without beta blockers Hypertension Diabetes HLP Echocardiogram done today. Results are pending. Discussed patient with our nutrition aides teacher, Dr Cardozo. We will place eliquis on hold and arrange for a pacemaker implant, as an outpatient, on Thursday, at [facility]. Patient is agreeable to this plan. Stable cardiac cheng, for discharge home today. Subjective Date of service: 08/25/19 Interval history: Patient complains of dizziness. Atrial flutter with slow ventricular response on telemetry. Objective Vital Signs Temp Pulse Resp BP Pulse Ox 08/25/19 07:55 122.0 F H 52 L 16 134/58 96 08/25/19 03:29 98.2 F 51 L 18 124/53 96 08/25/19 00:00 50 L 08/24/19 23:19 98.9 F 53 L 18 136/51 95 08/24/19 19:26 98.1 F 52 L 17 108/40 96 08/24/19 16:05 97.9 F 53 L 18 98/45 97 - Physical Examination General: No Apparent Distress HEENT: Positive: PERRL Neck: Positive: trachea midline Cardiac: Positive: irregularly irregular Lungs: Positive: Decreased Breath Sounds Neuro: Positive: Grossly Intact Abdomen: Positive: Soft Extremities: Absent: edema
[2019-08-25 14:20] VITALS: BP 135/74
== END 2019-08-25 14:27 | disposition home or self-care (01) ==
LOC: ED 22:21 → 4A 08-24 05:48 → OBSVTOIN 08-25 12:00 → INTOOBSV 08-25 12:00
PROVIDERS: ADMIT Internal Medicine; ATTEND Internal Medicine
DX: R42 Dizziness and giddiness (principal); R00.1 Bradycardia, unspecified; I48.92 Unspecified atrial flutter; I16.0 Hypertensive urgency; E11.9 Type 2 diabetes mellitus without complications
CPT/HCPCS: 36415; 70450; 71046; 72125; 80048; 80076; 81001; 82962; 83036; 83735; 84439; 84443; 84484; 85025; 85379; 85610; 85730; 93005; 93010; 93306; 93880; 96372; 99284; 99285; A9270; G0378; J1815

== ENCOUNTER 2019-11-15 14:58 | Inpatient (IN) | payer MEDICARE ==
--- NOTE | 2019-11-15 15:28 | Event Note ---
ED Screening Note ED Screening Note: abd pain states she is having hematochezia that began yesterday hyperglycemia, states she took 20 units of humalog n/v no fever PMHx DM, HTN, HLD This initial assessment/diagnostic orders/clinical plan/treatment(s) is/are subject to change based on patients health status, clinical progression and re-assessment by fellow clinical providers in the ED. Further treatment and workup at subsequent clinical providers discretion. Patient/guardian urged not to elope from the ED as their condition may be serious if not clinically assessed and managed. Initial orders include: labs
[2019-11-15 16:38] LABS: Basophils # (Auto) 0.1 K/mm3 (0.0-0.1); Basophils % (Auto) 0.4 % (0.0-1.8); Hemoglobin 6.5 gm/dl (10.1-14.3); Lymphocytes # (Auto) 2.8 K/mm3 (1.2-5.4); Lymphocytes % (Auto) 19.6 % (13.4-35.0); Mean Corpuscular HGB Conc 33 % (30-34); Mean Corpuscular Volume 88 fl (79-97); Monocytes # (Auto) 0.5 K/mm3 (0.0-0.8); Monocytes % (Auto) 3.8 % (0.0-7.3); Platelet Count 239 K/mm3 (140-440); Red Blood Count 2.23 M/mm3 (3.65-5.03); Red Cell Distribution Width 14.8 % (13.2-15.2)
[2019-11-15 16:46] LABS: Hematocrit 19.5 % (30.3-42.9)
[2019-11-15 16:49] LABS: INR 1.58 (0.87-1.13); Partial Thromboplastin Time 26.4 Sec. (24.2-36.6)
[2019-11-15 16:59] LABS: Albumin 3.3 g/dL (3.9-5); Calcium 8.3 mg/dL (8.4-10.2)
[2019-11-15] MEDS ORDERED: SODIUM CHLORIDE 0.9% 1000 ML 1,000 ML IV ONE (18:30)
[2019-11-15] MEDS ORDERED: SODIUM CHLORIDE 0.9% 500 ML 500 ML IV ONE (18:30)
[2019-11-15] MEDS ORDERED: PANTOPRAZOLE 40 MG INJ IV ONE (18:43)
--- NOTE | 2019-11-15 18:43 | Emergency Department Report ---
HPI - General Chief Complaint: Hyperglycemia Time Seen by Provider: 11/15/19 15:25 - HPI HPI: Room 25 The patient is a 69-year-old female presenting with chief complaint abdominal pain and hematochezia. Family states patient's symptoms began last night with her complaint of constipation. The patient took [facility] but it did not help. Then at approximately 20:00 the patient began having frequent liquid bowel movements somewhat which were dark but all which she passed blood. There was an episode of nausea and vomiting but there was no coffee ground emesis or hematemesis. Patient complains of diffuse abdominal pain. ED Past Medical Hx - Past Medical History Previous Medical History?: Yes Hx Hypertension: Yes Hx Diabetes: Yes - Surgical History Past Surgical History?: Yes Hx Open Heart Surgery: Yes (3yrs ago) Hx Pacemaker: Yes (3mos ago) - Family History Family history: no significant - Social History Smoking Status: Never Smoker Substance Use Type: None - Medications Home Medications: Home Medications Medication Instructions Recorded Confirmed Last Taken Type Furosemide [Lasix TAB] 40 mg PO QDAY 08/24/19 08/24/19 Unknown History Insulin Glargine [Lantus VIAL] 35 units SQ QHS 08/24/19 08/24/19 Unknown History Lispro Insulin [HumaLOG] 20 units SQ QAC 08/24/19 08/24/19 Unknown History Simvastatin 40 mg PO QDAY 08/24/19 08/24/19 Unknown History lisinopriL [Zestril TAB] 10 mg PO 08/24/19 Unknown History Acetaminophen [Acetaminophen TAB] 2 tab PO Q4H PRN #15 tablet 08/25/19 Unknown Rx ED Review of Systems ROS: Stated complaint: HYPERGLYCEMIA/BLOOD IN STOOL Other details as noted in HPI Constitutional: no symptoms reported Eyes: denies: eye pain ENT: denies: throat pain Respiratory: no symptoms reported Cardiovascular: denies: chest pain Endocrine: no symptoms reported Gastrointestinal: abdominal pain, nausea, vomiting, constipation, hematochezia. denies: hematemesis Musculoskeletal: back pain Physical Exam - Physical Exam Vital Signs: Vital Signs 11/15/19 11/15/19 11/15/19 15:25 17:58 18:07 Temperature 97.7 F 98.2 F Pulse Rate 78 72 Respiratory 20 18 18 Rate Blood Pressure 104/26 Blood Pressure 92/42 [Left] O2 Sat by Pulse 96 100 100 Oximetry Physical Exam: GENERAL: The patient is well-developed well-nourished female lying on stretcher appearing pale. [] HEENT: Normocephalic. Atraumatic. Extraocular motions are intact. Patient has moist mucous membranes. NECK: Supple. Trachea midline CHEST/LUNGS: Clear to auscultation. There is no respiratory distress noted. HEART/CARDIOVASCULAR: Regular. There is no tachycardia. There is no gallop rub or murmur. ABDOMEN: Abdomen is soft, nontender. Patient has normal bowel sounds. There is no abdominal distention. SKIN: The patient is pale. There is no diaphoresis. NEURO: The patient is awake and oriented. The patient is cooperative. MUSCULOSKELETAL: There is no evidence of acute injury. RECTAL: Melena. Guaiac positive ED Course Vital Signs 11/15/19 11/15/19 11/15/19 15:25 17:58 18:07 Temperature 97.7 F 98.2 F Pulse Rate 78 72 Respiratory 20 18 18 Rate Blood Pressure 104/26 Blood Pressure 92/42 [Left] O2 Sat by Pulse 96 100 100 Oximetry - Consultations Consultation #1: 11/15/19 18:46 GI paged 11/15/19 18:[address] Gema Perales- keep npo overnight ED Medical Decision Making - Lab Data Result diagrams: 11/15/19 16:22 11/15/19 16:22 Laboratory Tests 11/15/19 11/15/19 11/15/19 15:33 16:22 16:22 WBC 14.3 H RBC 2.23 L Hgb 6.5 L Hct 19.5 L* MCV 88 MCH 29 MCHC 33 RDW 14.8 Plt Count 239 Lymph % (Auto) 19.6 [place] % (Auto) 3.8 Eos % (Auto) 0.0 Baso % (Auto) 0.4 Lymph # 2.8 [place] # 0.5 Eos # 0.0 Baso # 0.1 Seg Neutrophils % 76.2 H Seg Neutrophils # 10.9 H PT 19.1 H INR 1.58 H APTT 26.4 VBG pH Sodium Potassium Chloride Carbon Dioxide Anion Gap BUN Creatinine Estimated GFR BUN/Creatinine Ratio Glucose POC Glucose 442 H Calcium Total Bilirubin AST ALT Alkaline Phosphatase Total Protein Albumin Albumin/Globulin Ratio Lipase Blood Type Antibody Screen Crossmatch 11/15/19 11/15/19 11/15/19 16:22 16:22 17:30 WBC RBC Hgb Hct MCV MCH MCHC RDW Plt Count Lymph % (Auto) [place] % (Auto) Eos % (Auto) Baso % (Auto) Lymph # [place] # Eos # Baso # Seg Neutrophils % Seg Neutrophils # PT INR APTT VBG pH Sodium 135 L Potassium 6.0 H Chloride 101.6 Carbon Dioxide 14 L Anion Gap 25 BUN 57 H Creatinine 1.0 Estimated GFR 55 BUN/Creatinine Ratio 57 Glucose 510 H* POC Glucose Calcium 8.3 L Total Bilirubin 0.40 AST 11 ALT 10 Alkaline Phosphatase 37 Total Protein 5.2 L Albumin 3.3 L Albumin/Globulin Ratio 1.7 Lipase 17 Blood Type A POSITIVE A POSITIVE Antibody Screen Negative Crossmatch See Detail 11/15/19 18:32 WBC RBC Hgb Hct MCV MCH MCHC RDW Plt Count Lymph % (Auto) [place] % (Auto) Eos % (Auto) Baso % (Auto) Lymph # [place] # Eos # Baso # Seg Neutrophils % Seg Neutrophils # PT INR APTT VBG pH 7.295 L Sodium Potassium Chloride Carbon Dioxide Anion Gap BUN Creatinine Estimated GFR BUN/Creatinine Ratio Glucose POC Glucose Calcium Total Bilirubin AST ALT Alkaline Phosphatase Total Protein Albumin Albumin/Globulin Ratio Lipase Blood Type Antibody Screen Crossmatch - Differential Diagnosis GI bleed, DKA, Critical Care Time: Yes Critical care time in (mins) excluding proc time.: 30 Critical care attestation.: If time is entered above; I have spent that time in minutes in the direct care of this critically ill patient, excluding procedure time. ED Disposition Clinical Impression: Upper GI bleed, Symptomatic anemia, DKA (diabetic ketoacidoses) Disposition: -09 OP ADMIT IP TO THIS HOSP Is pt being admited?: Yes Does the pt Need Aspirin: No Condition: Serious Instructions: Diabetic Ketoacidosis (ED) Time of Disposition: 19:20 (hospitalist paged (Dr Hanson))
[2019-11-15] MEDS: PANTOPRAZOLE 80 MG in SODIUM CHLORIDE 0.9% 100 ML IV SCH (19:41)
[2019-11-15] MEDS ORDERED: INSULIN REGULAR, HUMAN 100 UNITS in SODIUM CHLORIDE 0.9% 99 ML IV SCH (20:00)
[2019-11-15] MEDS ORDERED: ONDANSETRON 4 MG/2 ML INJ IV PRN (22:32)
[2019-11-15] MEDS ORDERED: ACETAMINOPHEN 325 MG TAB PO PRN (22:32)
--- NOTE | 2019-11-15 22:34 | History and Physical Report ---
History of Present Illness Date of examination: 11/15/19 Date of admission: 11/15/19 19:23 History of present illness: 69-year-old woman with a history of atrial flutter, hypertension, diabetes, Status post ASD closure comes emergency room because yesterday she was constipated and took a laxative. She stated that he started having bowel movements however she had multiple episodes of bloody stool. Denies any NSAID use. Also complaining of abdominal pain, mid abdomen that started today, de scribed as a squeezing pain, constant, intensity 7/10, no radiation, cannot identify exacerbating or relieving factors. Also admits to nausea vomiting, no fever or chills. Patient has been admitted for DKA, GI bleed Review Of Systems: Constitutional: no weight loss, fever, chills Ears, eyes, nose, mouth and throat: no nasal congestion, no nasal discharge, no sinus pressure, blurry vision, diplopia Neck: No neck pain or rigidity. Cardiovascular: No palpitations, chest pain Respiratory: No shortness of breath, cough Gastrointestinal: No hematochezia Genitourinary : no dysuria, frequency Musculoskeletal: no muscle ache , joint pain Integumentary: no rash, no pruritis Neurological: no parathesias, focal weakness Endocrine: no cold or heat intolerance, no polyuria or polydipsia Hematologic/Lymphatic: no easy bruising, no easy bleeding, no gland swelling Allergic/Immunologic: no urticaria, no angioedema. PAST MEDICAL HISTORY: atrial flutter, hypertension, diabetes PAST SURGICAL HISTORY: Status post ASD closure, pacemaker SOCIAL HISTORY: Denies alcohol, tobacco, drugs FAMILY HISTORY: Hypertension Medications and Allergies Allergies Allergy/AdvReac Type Severity Reaction Status Date / Time aspirin Allergy Unknown Verified 08/23/19 22:55 codeine Allergy Unknown Verified 08/23/19 22:55 Penicillins Allergy Unknown Verified 08/23/19 22:55 Home Medications Medication Instructions Recorded Confirmed Last Taken Type Furosemide [Lasix TAB] 40 mg PO QDAY 08/24/19 11/15/19 1 Day Ago History ~11/14/19 Insulin Glargine [Lantus VIAL] 35 units SQ QHS 08/24/19 11/15/19 1 Day Ago Hist ory ~11/14/19 Lispro Insulin [HumaLOG] 20 units SQ QAC 08/24/19 11/15/19 1 Day Ago History ~11/14/19 Simvastatin 40 mg PO QDAY 08/24/19 11/15/19 1 Day Ago History ~11/14/19 Apixaban [Eliquis] 5 mg PO BID 11/15/19 11/15/19 1 Day Ago History ~11/14/19 Simvastatin 40 mg PO DAILY 11/15/19 11/15/19 1 Day Ago History ~11/14/19 Tizanidine HCl [Tizanidine 2mg tab] 4 mg PO DAILY 11/15/19 11/15/19 1 Day Ago History ~11/14/19 dilTIAZem HCL [Diltiazem HCl] 120 mg PO BID 11/15/19 11/15/19 1 Day Ago History ~11/14/19 Active Meds: Active Medications Pantoprazole Sodium 80 mg/ (Sodium Chloride) 100 mls @ 10 mls/hr IV DIRECT MANOHAR Last Admin: 11/15/19 19:41 Dose: 8 mg/hr, 10 mls/hr Documented by: Insulin Human Regular 100 (units/ Sodium Chloride) 100 mls @ 8 mls/hr IV TITR MANOHAR; Protocol Last Admin: 11/15/19 21:27 Dose: 8 units/hr, 8 mls/hr Documented by: Exam - Physical Exam Narrative exam: Gen. appearance: Patient lying in bed, no apparent distress HEENT: Normocephalic, atraumatic, pupils equally round and reactive to light, extraocular movement intact, and no sclericterus,. No JVD or thyromegaly or nodule,neck supple, no carotid bruit ,mucous membranes moist, no exudate or erythema Heart: S1, S2, regular rate and rhythm Lungs: Clear bilaterally, breathing comfortable Abdomen: Positive bowel sounds, tender in the mid abdomen, nondistended, no organomegaly Extremity: no edema, cyanosis, clubbing Skin: No rash, nodules, warm, dry Neuro: speech is fluent, moves extremities, sensory intact - Constitutional Vitals: Temp Pulse Resp BP Pulse Ox 98.6 F 99 H 22 98/41 100 11/15/19 22:19 11/15/19 22:19 11/15/19 22:19 11/15/19 22:19 11/15/19 22:19 Results - Labs CBC & Chem 7: 11/15/19 16:22 11/16/19 02:07 Labs: Abnormal lab results 11/15/19 11/15/19 11/15/19 Range/Units 15:33 16:22 16:22 WBC 14.3 H (4.5-11.0) K/mm3 RBC 2.23 L (3.65-5.03) M/mm3 Hgb 6.5 L (10.1-14.3) gm/dl Hct 19.5 L* (30.3-42.9) % Seg Neutrophils % 76.2 H (40.0-70.0) % Seg Neutrophils # 10.9 H (1.8-7.7) K/mm3 PT 19.1 H (12.2-14.9) Sec. INR 1.58 H (0.87-1.13) VBG pH (7.320-7.420) Sodium (137-145) mmol/L Potassium (3.6-5.0) mmol/L Carbon Dioxide (22-30) mmol/L BUN (7-17) mg/dL Glucose (65-100) mg/dL POC Glucose 442 H (70-105) Calcium (8.4-10.2) mg/dL Total Protein (6.3-8.2) g/dL Albumin (3.9-5) g/dL Crossmatch 11/15/19 11/15/19 11/15/19 Range/Units 16:22 17:30 18:32 WBC (4.5-11.0) K/mm3 RBC (3.65-5.03) M/mm3 Hgb (10.1-14.3) gm/dl Hct (30.3-42.9) % Seg Neutrophils % (40.0-70.0) % Seg Neutrophils # (1.8-7.7) K/mm3 PT (12.2-14.9) Sec. INR (0.87-1.13) VBG pH 7.295 L (7.320-7.420) Sodium 135 L (137-145) mmol/L Potassium 6.0 H (3.6-5.0) mmol/L Carbon Dioxide 14 L (22-30) mmol/L BUN 57 H (7-17) mg/dL Glucose 510 H* (65-100) mg/dL POC Glucose (70-105) Calcium 8.3 L (8.4-10.2) mg/dL Total Protein 5.2 L (6.3-8.2) g/dL Albumin 3.3 L (3.9-5) g/dL Crossmatch See Detail Assessment and Plan Assessment DKA with severe metabolic acidosis Start DKA protocol with insulin drip Start IV fluids, monitor serial chemistry check hemoglobin A1c, Consult critical care GI bleed Transfuse packed red blood cells, monitor hemoglobin Consult GI, continue Protonix drip, hold eliquis Abdominal pain Check CAT scan of the abdomen pelvis Start IV morphine, antiemetic SIRS Start IV Levaquin obtain blood cultures, urinalysis Atrial flutter Rate control, hold eliquisb for now Consult cardiology Hyperkalemia Improving, continue to monitor DVT prophylaxis
[2019-11-15] MEDS ORDERED: SODIUM CHLORIDE 0.9% 1000 ML 1,000 ML IV SCH (22:45)
[2019-11-15 22:46] LABS: BUN/Creatinine Ratio 70; Blood Urea Nitrogen 56 mg/dL (7-17); Calcium 7.4 mg/dL (8.4-10.2); Hemolysis Index 4
[2019-11-15] MEDS ORDERED: SODIUM CHLORIDE 0.9% 1000 ML 1,000 ML ONE (23:25)
[2019-11-15 23:59] LABS: BUN/Creatinine Ratio 61; Blood Urea Nitrogen 55 mg/dL (7-17); Calcium 7.7 mg/dL (8.4-10.2); Hemolysis Index 8
--- NOTE | 2019-11-16 00:17 | Cat Scan Report ---
CT abdomen pelvis wo con INDICATION: ABD pain. TECHNIQUE: All CT scans at this location are performed using CT dose reduction for ALARA by means of automated e xposure control. COMPARISON: None available. FINDINGS: Lung bases are clear. Liver, gallbladder, spleen, pancreas, kidneys and adrenals are negative. Abdomi nal aorta is normal in size. No adenopathy. Pelvis Urinary bladder and uterus appear negative. No free fluid or inflammation. Moderate sigmoid diverticu losis but no CT evidence of diverticulitis. Appendix cannot be identified. No acute skeletal lesions. IMPRESSION: 1. No acute abnormality. Signer Name: Lucien Figueroa MD Signed: 11/16/2019 12:13 AM Workstation Name: [facility]
[2019-11-16] MEDS ORDERED: SODIUM CHLORIDE 0.9% 1000 ML 1,000 ML ONE (00:20)
[2019-11-16] MEDS ORDERED: SODIUM CHLORIDE 0.9% 1000 ML 1,000 ML IV ONE (00:23)
[2019-11-16 02:11] LABS: Bilirubin,Urine NEG (Negative); Blood,Urine LG (Negative); Color,Urine Yellow (Yellow); Mucus,Urine FEW /HPF; Protein,Urine <15 mg/dL mg/dL (Negative); Urobilinogen,Urine < 2.0 mg/dL (<2.0)
[2019-11-16 02:39] LABS: BUN/Creatinine Ratio 67; Blood Urea Nitrogen 47 mg/dL (7-17); Calcium 7.1 mg/dL (8.4-10.2); Hemolysis Index 2
[2019-11-16] MEDS ORDERED: D5W/0.45% NACL 1,000 ML IV ONE ×2 (04:15→11:43)
[2019-11-16] MEDS: D5W/0.45% NACL 1,000 ML IV SCH (04:17)
[2019-11-16] MEDS ORDERED: SODIUM CHLORIDE 0.9% 250ML 250 ML ONE (06:39)
[2019-11-16] MEDS ORDERED: SODIUM CHLORIDE 0.9% 250ML 250 ML IV SCH (06:45)
[2019-11-16] MEDS ORDERED: SODIUM PHOSPHATE 30 MMOL in SODIUM CHLORIDE 0.9% 500 ML 500 ML IV ONE (09:00)
[2019-11-16] MEDS ORDERED: MAGNESIUM SULFATE 2 GM/50 ML BAG IV ONE ×2 (09:00→10:36)
--- NOTE | 2019-11-16 09:32 | Progress Note ---
Assessment and Plan Assessment and plan: --DKA with severe metabolic acidosis on DKA protocol with insulin drip IV fluids, anion gap closed Blood sugars reasonable level We will continue insulin drip as patient is n.p.o. for GI bleeding evaluation --Acute GI bleeding IV Protonix, n.p.o. status, GI consult For possible endoscopy,Eliquis held Protonix drip --Acute blood loss anemia; Requiring 2 units of PRBC, monitor H&H Transfuse additional PRBCs As needed --Hyperkalemia corrected, closely monitor electrolytes --Hypomagnesemia; Replenish per protocol and monitor levels --Hypophosphatemia; Replace with sodium phosphate --SIRS Start IV Levaquin obtain blood cultures, urinalysis --Atrial flutter Rate control, hold eliquisb for now Consult cardiology as needed --Full CODE STATUS --DVT prophylaxis; SCDs No pharmacologic anticoagulation in ne view of severe bleeding and severe anemia Closely monitor the patient and adjust management as needed Critical care time 35 minutes History Interval history: Patient seen and examined medical records reviewed Patient was admitted with DKA, GI bleeding, hyperkalemia, severe anemia Received 2 units of PRBC Patient complains of generalized weakness Alert awake oriented, mild distress Vital signs noted Hospitalist Physical - Constitutional Vitals: Temp Pulse Resp BP Pulse Ox 98.8 F 71 16 92/50 99 11/16/19 01:18 11/16/19 09:00 11/16/19 09:00 11/16/19 09:00 11/16/19 09:00 General appearance: Present: mild distress, well-nourished, obese - EENT Eyes: Present: PERRL, EOM intact - Neck Neck: Present: supple, normal ROM - Respiratory Respiratory effort: normal Respiratory: bilateral: diminished, negative: rales, rhonchi, wheezing - Cardiovascular Rhythm: regular Heart Sounds: Present: S1 & S2 - Extremities Extremities: no ischemia, No edema - Abdominal General gastrointestinal: soft, non-tender, non-distended, normal bowel sounds - Integumentary Integumentary: Present: clear, warm - Psychiatric Psychiatric: appropriate mood/affect, cooperative - Neurologic Neurologic: moves all extremities Results - Labs CBC & Chem 7: 11/15/19 16:22 11/16/19 02:07 Labs: Laboratory Last Values WBC 14.3 K/mm3 (4.5-11.0) H 11/15/19 16:22 RBC 2.23 M/mm3 (3.65-5.03) L 11/15/19 16:22 Hgb 6.5 gm/dl (10.1-14.3) L 11/15/19 16:22 Hct 19.5 % (30.3-42.9) L* 11/15/19 16:22 MCV 88 fl (79-97) 11/15/19 16:22 MCH 29 pg (28-32) 11/15/19 16:22 MCHC 33 % (30-34) 11/15/19 16:22 RDW 14.8 % (13.2-15.2) 11/15/19 16:22 Plt Count 239 K/mm3 (140-440) 11/15/19 16:22 Lymph % (Auto) 19.6 % (13.4-35.0) 11/15/19 16:22 [place] % (Auto) 3.8 % (0.0-7.3) 11/15/19 16:22 Eos % (Auto) 0.0 % (0.0-4.3) 11/15/19 16:22 Baso % (Auto) 0.4 % (0.0-1.8) 11/15/19 16:22 Lymph # 2.8 K/mm3 (1.2-5.4) 11/15/19 16:22 [place] # 0.5 K/mm3 (0.0-0.8) 11/15/19 16:22 Eos # 0.0 K/mm3 (0.0-0.4) 11/15/19 16:22 Baso # 0.1 K/mm3 (0.0-0.1) 11/15/19 16:22 Seg Neutrophils % 76.2 % (40.0-70.0) H 11/15/19 16:22 Seg Neutrophils # 10.9 K/mm3 (1.8-7.7) H 11/15/19 16:22 PT 19.1 Sec. (12.2-14.9) H 11/15/19 16:22 INR 1.58 (0.87-1.13) H 11/15/19 16:22 APTT 26.4 Sec. (24.2-36.6) 11/15/19 16:22 VBG pH 7.295 (7.320-7.420) L 11/15/19 18:32 Sodium 140 mmol/L (137-145) 11/16/19 02:07 Potassium 4.5 mmol/L (3.6-5.0) 11/16/19 02:07 Chloride 112.2 mmol/L (98-107) H 11/16/19 02:07 Carbon Dioxide 19 mmol/L (22-30) L 11/16/19 02:07 Anion Gap 13 mmol/L 11/16/19 02:07 BUN 47 mg/dL (7-17) H 11/16/19 02:07 Creatinine 0.7 mg/dL (0.7-1.2) 11/16/19 02:07 Estimated GFR > 60 ml/min 11/16/19 02:07 BUN/Creatinine Ratio 67 % 11/16/19 02:07 Glucose 242 mg/dL (65-100) H 11/16/19 02:07 POC Glucose 170 (70-105) H 11/16/19 05:27 Hemoglobin A1c 7.1 % (4-6) H 11/15/19 23:07 Calcium 7.1 mg/dL (8.4-10.2) L 11/16/19 02:07 Phosphorus 2.20 mg/dL (2.5-4.5) L D 11/16/19 02:07 Magnesium 1.50 mg/dL (1.7-2.3) L 11/16/19 02:07 Total Bilirubin 0.40 mg/dL (0.1-1.2) 11/15/19 16:22 AST 11 units/L (5-40) 11/15/19 16:22 ALT 10 units/L (7-56) 11/15/19 16:22 Alkaline Phosphatase 37 units/L (35-129) 11/15/19 16:22 Total Protein 5.2 g/dL (6.3-8.2) L 11/15/19 16:22 Albumin 3.3 g/dL (3.9-5) L 11/15/19 16:22 Albumin/Globulin Ratio 1.7 % 11/15/19 16:22 Lipase 17 units/L (13-60) 11/15/19 16:22 Urine Color Yellow (Yellow) 11/16/19 01:56 Urine Turbidity Slightly-cloudy (Clear) 11/16/19 01:56 Urine pH 5.0 (5.0-7.0) 11/16/19 01:56 Ur Specific [place] 1.016 (1.003-1.030) 11/16/19 01:56 Urine Protein <15 mg/dl mg/dL (Negative) 11/16/19 01:56 Urine Glucose (UA) >=500 mg/dL (Negative) 11/16/19 01:56 Urine Ketones Neg mg/dL (Negative) 11/16/19 01:56 Urine Blood Lg (Negative) 11/16/19 01:56 Urine Nitrite Neg (Negative) 11/16/19 01:56 Urine Bilirubin Neg (Negative) 11/16/19 01:56 Urine Urobilinogen < 2.0 mg/dL (<2.0) 11/16/19 01:56 Ur Leukocyte Esterase Tr (Negative) 11/16/19 01:56 Urine WBC (Auto) 7.0 /HPF (0.0-6.0) H 11/16/19 01:56 Urine RBC (Auto) 4.0 /HPF (0.0-6.0) 11/16/19 01:56 U Epithel Cells (Auto) 6.0 /HPF (0-13.0) 11/16/19 01:56 Urine Mucus Few /HPF 11/16/19 01:56 Blood Type A POSITIVE 11/15/19 17:30 Antibody Screen Negative 11/15/19 17:30 Crossmatch See Detail 11/15/19 17:30 Active Medications - Current Medications Current Medications: Generic Name Dose Route Start Last Admin Trade Name Freq PRN Reason Stop Dose Admin Acetaminophen 650 mg 11/15/19 22:32 Tylenol PO Q4H PRN Pain MILD(1-3)/Fever >100.5/NGUYEN Pantoprazole Sodium 80 mg/ 100 mls @ 10 mls/hr 11/15/19 19:00 11/15/19 19:41 Sodium Chloride IV 8 mg/hr DIRECT MANOHAR 10 mls/hr Administration 8 MG/HR Insulin Human Regular 100 100 mls @ 8 mls/hr 11/15/19 20:00 11/16/19 08:14 units/ Sodium Chloride IV 7 units/hr TITR MANOHAR 7 mls/hr Titration Protocol 8 UNITS/HR Sodium Chloride 1,000 mls @ 150 mls/hr 11/15/19 22:45 11/15/19 23:28 Nacl 0.9% 1000 Ml IV 150 mls/hr DIRECT MANOHAR Administration Dextrose/Sodium Chloride 1,000 mls @ 150 mls/hr 11/15/19 23:00 11/16/19 04:17 D5/0.45ns IV 150 mls/hr DIRECT MANOHAR Administration Sodium Chloride 250 mls @ 999 mls/hr 11/16/19 06:45 11/16/19 06:45 Nacl 0.9% 250ml IV 999 mls/hr ONCE MANOHAR Administration Magnesium Sulfate 2 gm in 50 mls @ 25 mls/hr 11/16/19 09:00 Magnesium Sulfate 2gm/50ml IV 11/16/19 10:59 ONCE ONE Sodium Phosphate 30 mmol/ 510 mls @ 125 mls/hr 11/16/19 09:00 Sodium Chloride IV 11/16/19 13:04 ONCE ONE Morphine Sulfate 2 mg 11/15/19 22:32 Morphine IV Q4H PRN Pain, Moderate (4-6) Ondansetron HCl 4 mg 11/15/19 22:32 Zofran IV Q4H PRN Nausea And Vomiting Pravastatin Sodium 80 mg 11/16/19 22:00 Pravachol PO QHS MANOHAR Sodium Chloride 10 ml 11/16/19 10:00 Sodium Chloride Flush Syringe 10 Ml IV BID MANOHRA Sodium Chloride 10 ml 11/15/19 22:32 Sodium Chloride Flush Syringe 10 Ml IV PRN PRN LINE FLUSH
--- NOTE | 2019-11-16 12:22 | Consultation ---
REFERRING PHYSICIAN: Cecilia Pearce MD INDICATIONS: GI bleed. HISTORY OF PRESENT ILLNESS: The patient is a 69-year-old female with history of atrial flutter, hypertension, diabetes, who presents for signs of GI bleed. The patient reports that she has been having some constipation and took a laxative. She reports she has had multiple bouts of rectal bleeding. She describes these as bright red as well as some darker stools. The patient also reports that she had some nausea, vomiting and threw up some darker material. The patient subsequently came to the Emergency Room for those complaints. The patient was subsequently noted to be anemic and also in DKA and admitted and GI consulted. The patient reports that she had a colonoscopy 2-3 years ago with no significant findings. She denies any other specific GI problems or complaints at this time. She does report that she has been on Eliquis. PAST MEDICAL HISTORY: 1. Atrial flutter. 2. Hypertension. 3. Diabetes. PAST SURGICAL HISTORY: Status post pacemaker. ALLERGIES: To ASPIRIN, CODEINE and PENICILLIN. MEDICATIONS: Reviewed and updated in chart. SOCIAL HISTORY: Denies alcohol, tobacco or IV drug abuse. FAMILY HISTORY: Negative for colon cancer, IBD, or liver disease. REVIEW OF SYSTEMS: GENERAL: Reports some weakness. HEENT: No visual complaints or tinnitus. PULMONARY: No shortness of breath. CARDIOVASCULAR: No chest pain. GASTROINTESTINAL: Reports some rectal bleeding and a question of coffee emesis, now better since being in the Emergency Room. Other 13-point review of systems otherwise negative. PHYSICAL EXAMINATION: VITAL SIGNS: Temperature of 98.8, pulse 70, respirations 16, blood pressure 90/50. GENERAL: Fairly nourished, somewhat obese female in no acute distress. HEENT: Pupils equal, round and reactive. PULMONARY: Clear to auscultation bilaterally. CARDIOVASCULAR: Regular rate and rhythm. Normal S1, S2. ABDOMEN: Positive bowel sounds, soft. SKIN: No obvious rashes. LABORATORY DATA: Pertinent for white count of 14.3, hemoglobin and hematocrit of 6.5 and 19.5, platelet count of 239. Chem-7 pertinent for sodium of 135, potassium 6.0, chloride 101, CO2 of 14, BUN and creatinine of 57 and 1. LFTs within normal limits. Coags pertinent for an INR of 1.58. CT scan of abdomen and pelvis with contrast on 11/15/2019 showed no acute abnormalities. ASSESSMENT: A 69-year-old female with history of atrial flutter, on Eliquis, who had been recently constipated and took stool softeners and now presents with reported rectal bleeding with some bright red and darker stools as well as a report of some nausea, vomiting and question of coffee emesis. The patient was noted to be significantly anemic, but also in DKA. Possibility of upper or lower GI bleed, but given her current status with her low blood count and her DKA would want to be more medically optimized before proceeding with intervention. PLAN: 1. Follow hematocrit and we will transfuse for hemoglobin less than 8. 2. PPI IV drip. 3. Okay for clear liquid diet today. 4. Diabetic ketoacidosis, order diabetes management per primary team with reported plans of admission to the ICU. 5. We will plan for EGD and colonoscopy when stable and more medically optimized. 6. We will follow. [facility]# [id number] NERY/LOUIS MARTIN
[2019-11-16 13:54] LABS: Basophils % (Auto) 0.3 % (0.0-1.8); Eosinophils % (Auto) 0.3 % (0.0-4.3); Hemoglobin 6.4 gm/dl (10.1-14.3); Lymphocytes # (Auto) 2.4 K/mm3 (1.2-5.4); Lymphocytes % (Auto) 21.8 % (13.4-35.0); Mean Corpuscular HGB Conc 35 % (30-34); Mean Corpuscular Volume 86 fl (79-97); Monocytes # (Auto) 0.7 K/mm3 (0.0-0.8); Monocytes % (Auto) 6.8 % (0.0-7.3); Platelet Count 141 K/mm3 (140-440); Red Blood Count 2.15 M/mm3 (3.65-5.03); Red Cell Distribution Width 15.1 % (13.2-15.2)
[2019-11-16 14:01] LABS: Hematocrit 18.5 % (30.3-42.9)
[2019-11-16] MEDS ORDERED: SODIUM CHLORIDE 0.9% 500 ML 500 ML IV ONE (14:08)
[2019-11-16] MEDS ORDERED: FUROSEMIDE 20 MG/2 ML INJ IV ONE (14:09)
[2019-11-16 14:13] LABS: BUN/Creatinine Ratio 52; Blood Urea Nitrogen 26 mg/dL (7-17); Hemolysis Index 3
[2019-11-16] MEDS ORDERED: SODIUM CHLORIDE 0.9% 500 ML 500 ML ONE (16:25)
[2019-11-16] MEDS ORDERED: INSULIN LISPRO 100 UNIT/ML SUB-Q ONE (18:26)
[2019-11-16] MEDS: INSULIN LISPRO 100 UNIT/ML SUB-Q SCH ×2 (18:36)
--- NOTE | 2019-11-16 19:34 | Event Note ---
Date: 11/16/19 Patient has acute GI bleeding with anemia hemoglobin of 6.5 Received 2 units of PRBC transfusion, GI evaluated the patient Recommend clear liquids, repeat hemoglobin 6.4. Informed GI Transfuse additional 2 units PRBC, closely monitor H&H. Plan of care is reviewed with the patient and her nurse
[2019-11-16] MEDS ORDERED: FUROSEMIDE 20 MG/2 ML INJ ONE (23:08)
[2019-11-16 23:45] LABS: BUN/Creatinine Ratio 26; Blood Urea Nitrogen 13 mg/dL (7-17); Calcium 7.3 mg/dL (8.4-10.2); Hemolysis Index 5
[2019-11-17] MEDS ORDERED: INSULIN LISPRO 100 UNIT/ML SUB-Q ONE ×2 (01:42→14:18)
[2019-11-17] MEDS: INSULIN LISPRO 100 UNIT/ML SUB-Q SCH ×7 (02:08→18:23)
[2019-11-17] MEDS: INSULIN GLARGINE 100 UNITS/ML SUB-Q SCH ×2 (02:09→23:59)
[2019-11-17] MEDS: PRAVASTATIN 80 MG TAB PO SCH ×2 (02:10→23:54)
[2019-11-17 04:12] LABS: Basophils # (Auto) 0.1 K/mm3 (0.0-0.1); Basophils % (Auto) 0.9 % (0.0-1.8); Eosinophils # (Auto) 0.1 K/mm3 (0.0-0.4); Eosinophils % (Auto) 1.5 % (0.0-4.3); Hematocrit 27.7 % (30.3-42.9); Hemoglobin 9.4 gm/dl (10.1-14.3); Lymphocytes # (Auto) 2.7 K/mm3 (1.2-5.4); Lymphocytes % (Auto) 30.3 % (13.4-35.0); Mean Corpuscular HGB Conc 34 % (30-34); Mean Corpuscular Volume 88 fl (79-97); Monocytes # (Auto) 0.7 K/mm3 (0.0-0.8); Monocytes % (Auto) 7.7 % (0.0-7.3); Platelet Count 149 K/mm3 (140-440); Red Blood Count 3.17 M/mm3 (3.65-5.03); Red Cell Distribution Width 15.7 % (13.2-15.2)
[2019-11-17 04:37] LABS: Alanine Aminotransferase 11 units/L (7-56); Albumin 3.1 g/dL (3.9-5); BUN/Creatinine Ratio 18; Blood Urea Nitrogen 11 mg/dL (7-17); Calcium 7.4 mg/dL (8.4-10.2); Hemolysis Index 6
--- NOTE | 2019-11-17 07:25 | Progress Note ---
Assessment and Plan Assessment and plan: --Acute GI bleeding IV Protonix, n.p.o. status, GI evaluated Eliquis held, EGD today Protonix drip --DKA resolved Accu-Chek sliding scale coverage N.p.o. for GI procedure, ADA diet when stable Insulin as needed --Acute blood loss anemia; Requiring total 4 units of PRBC, Hemo-globin today is 9.4 Closely monitor --Hyperkalemia corrected, closely monitor electrolytes --Hypomagnesemia; Corrected, monitor electrolytes --Hypophosphatemia; Corrected --SIRS Start IV Levaquin obtain blood cultures, urinalysis --Atrial flutter Rate control, hold eliquis held due to GI bleeding Consult cardiology as needed --Full CODE STATUS --DVT prophylaxis; SCDs No pharmacologic anticoagulation in ne view of severe bleeding and severe anemia follow-up EGD and GI recommendations Disposition; discharged home in stable History Interval history: patient seen and examined medical records reviewed Patient is scheduled for EGD today Denies any chest pain shortness of breath No new episodes of GI bleeding Vital signs reviewed Hospitalist Physical - Constitutional Vitals: Temp Pulse Resp BP Pulse Ox 99 F 72 26 H 91/31 100 11/16/19 20:50 11/16/19 23:45 11/17/19 01:00 11/17/19 07:01 11/17/19 07:01 General appearance: Present: no acute distress, well-nourished, obese - EENT Eyes: Present: PERRL, EOM intact - Neck Neck: Present: supple, normal ROM - Respiratory Respiratory effort: normal Respiratory: bilateral: diminished, negative: rales, rhonchi, wheezing - Cardiovascular Rhythm: regular Heart Sounds: Present: S1 & S2 - Extremities Extremities: no ischemia, No edema - Abdominal General gastrointestinal: soft, non-tender, non-distended, normal bowel sounds - Integumentary Integumentary: Present: clear, warm - Psychiatric Psychiatric: appropriate mood/affect, cooperative - Neurologic Neurologic: CNII-XII intact, moves all extremities Results - Labs CBC & Chem 7: 11/17/19 03:29 11/17/19 03:29 Labs: Laboratory Last Values WBC 9.0 K/mm3 (4.5-11.0) 11/17/19 03:29 RBC 3.17 M/mm3 (3.65-5.03) L 11/17/19 03:29 Hgb 9.4 gm/dl (10.1-14.3) L D 11/17/19 03:29 Hct 27.7 % (30.3-42.9) L D 11/17/19 03:29 MCV 88 fl (79-97) 11/17/19 03:29 MCH 30 pg (28-32) 11/17/19 03: MCHC 34 % (30-34) 11/17/19 03:29 RDW 15.7 % (13.2-15.2) H 11/17/19 03:29 Plt Count 149 K/mm3 (140-440) 11/17/19 03:29 Lymph % (Auto) 30.3 % (13.4-35.0) 11/17/19 03:29 [place] % (Auto) 7.7 % (0.0-7.3) H 11/17/19 03:29 Eos % (Auto) 1.5 % (0.0-4.3) 11/17/19 03:29 Baso % (Auto) 0.9 % (0.0-1.8) 11/17/19 03:29 Lymph # 2.7 K/mm3 (1.2-5.4) 11/17/19 03:29 [place] # 0.7 K/mm3 (0.0-0.8) 11/17/19 03:29 Eos # 0.1 K/mm3 (0.0-0.4) 11/17/19 03:29 Baso # 0.1 K/mm3 (0.0-0.1) 11/17/19 03:29 Seg Neutrophils % 59.6 % (40.0-70.0) 11/17/19 03:29 Seg Neutrophils # 5.4 K/mm3 (1.8-7.7) 11/17/19 03:29 PT 19.1 Sec. (12.2-14.9) H 11/15/19 16:22 INR 1.58 (0.87-1.13) H 11/15/19 16:22 APTT 26.4 Sec. (24.2-36.6) 11/15/19 16:22 VBG pH 7.295 (7.320-7.420) L 11/15/19 18:32 Sodium 144 mmol/L (137-145) 11/17/19 03:29 Potassium 4.1 mmol/L (3.6-5.0) 11/17/19 03:29 Chloride 112.3 mmol/L (98-107) H 11/17/19 03:29 Carbon Dioxide 25 mmol/L (22-30) 11/17/19 03:29 Anion Gap 11 mmol/L 11/17/19 03:29 BUN 11 mg/dL (7-17) 11/17/19 03:29 Creatinine 0.6 mg/dL (0.7-1.2) L 11/17/19 03:29 Estimated GFR > 60 ml/min 11/17/19 03:29 BUN/Creatinine Ratio 18 % 11/17/19 03:29 Glucose 157 mg/dL (65-100) H 11/17/19 03:29 POC Glucose 194 (70-105) H 11/17/19 01:59 Hemoglobin A1c 7.1 % (4-6) H 11/15/19 23:07 Calcium 7.4 mg/dL (8.4-10.2) L 11/17/19 03:29 Phosphorus 3.40 mg/dL (2.5-4.5) D 11/16/19 13:33 Magnesium 2.10 mg/dL (1.7-2.3) 11/17/19 03:29 Total Bilirubin 0.40 mg/dL (0.1-1.2) 11/17/19 03:29 AST 15 units/L (5-40) 11/17/19 03:29 ALT 11 units/L (7-56) 11/17/19 03:29 Alkaline Phosphatase 30 units/L (35-129) L 11/17/19 03:29 Total Protein 4.7 g/dL (6.3-8.2) L 11/17/19 03:29 Albumin 3.1 g/dL (3.9-5) L 11/17/19 03:29 Albumin/Globulin Ratio 1.9 % 11/17/19 03:29 Lipase 17 units/L (13-60) 11/15/19 16:22 Urine Color Yellow (Yellow) 11/16/19 01:56 Urine Turbidity Slightly-cloudy (Clear) 11/16/19 01:56 Urine pH 5.0 (5.0-7.0) 11/16/19 01:56 Ur Specific [place] 1.016 (1.003-1.030) 11/16/19 01:56 Urine Protein <15 mg/dl mg/dL (Negative) 11/16/19 01:56 Urine Glucose (UA) >=500 mg/dL (Negative) 11/16/19 01:56 Urine Ketones Neg mg/dL (Negative) 11/16/19 01:56 Urine Blood Lg (Negative) 11/16/19 01:56 Urine Nitrite Neg (Negative) 11/16/19 01:56 Urine Bilirubin Neg (Negative) 11/16/19 01:56 Urine Urobilinogen < 2.0 mg/dL (<2.0) 11/16/19 01:56 Ur Leukocyte Esterase Tr (Negative) 11/16/19 01:56 Urine WBC (Auto) 7.0 /HPF (0.0-6.0) H 11/16/19 01:56 Urine RBC (Auto) 4.0 /HPF (0.0-6.0) 11/16/19 01:56 U Epithel Cells (Auto) 6.0 /HPF (0-13.0) 11/16/19 01:56 Urine Mucus Few /HPF 11/16/19 01:56 Blood Type A POSITIVE 11/15/19 17:30 Antibody Screen Negative 11/15/19 17:30 Crossmatch See Detail 11/15/19 17:30 Active Medications - Current Medications Current Medications: Generic Name Dose Route Start Last Admin Trade Name Freq PRN Reason Stop Dose Admin Acetaminophen 650 mg 11/15/19 22:32 Tylenol PO Q4H PRN Pain MILD(1-3)/Fever >100.5/NGUYEN Pantoprazole Sodium 80 mg/ 100 mls @ 10 mls/hr 11/15/19 19:00 11/15/19 19:41 Sodium Chloride IV 8 mg/hr DIRECT MANOHAR 10 mls/hr Administration 8 MG/HR Sodium Chloride 1,000 mls @ 150 mls/hr 11/15/19 22:45 11/15/19 23:28 Nacl 0.9% 1000 Ml IV 150 mls/hr DIRECT MANOHAR Administration Dextrose/Sodium Chloride 1,000 mls @ 150 mls/hr 11/15/19 23:00 11/16/19 04:17 D5/0.45ns IV 150 mls/hr DIRECT MANOHAR Administration Sodium Chloride 250 mls @ 999 mls/hr 11/16/19 06:45 11/16/19 06:45 Nacl 0.9% 250ml IV 999 mls/hr ONCE MANOHAR Administration Insulin Glargine 35 units 11/16/19 22:00 11/17/19 02:09 Lantus SUB-Q Not Given QHS MANOHAR Insulin Human Lispro 0 unit 11/16/19 16:30 11/17/19 02:08 Humalog SUB-Q 3 unit ACHS MANOHAR Administration Protocol Insulin Human Lispro 8 unit 11/16/19 16:30 11/16/19 18:36 Humalog SUB-Q Not Given AC MANOHAR Morphine Sulfate 2 mg 11/15/19 22:32 Morphine IV Q4H PRN Pain, Moderate (4-6) Ondansetron HCl 4 mg 11/15/19 22:32 Zofran IV Q4H PRN Nausea And Vomiting Pravastatin Sodium 80 mg 11/16/19 22:00 11/17/19 02:10 Pravachol PO 80 mg QHS MANOHAR Administration Sodium Chloride 10 ml 11/16/19 10:00 11/16/19 11:35 Sodium Chloride Flush Syringe 10 Ml IV 10 ml BID MANOHAR Administration Sodium Chloride 10 ml 11/15/19 22:32 Sodium Chloride Flush Syringe 10 Ml IV PRN PRN LINE FLUSH
[2019-11-17] MEDS ORDERED: POLYETHYLENE GLYCOL/ELECT SOLN 4000 ML PO ONE (12:39)
--- NOTE | 2019-11-17 12:40 | Gastroenterology Progress Note ---
Assessment and Plan 1.GI bleed 2.anemia -H/H 9.4/27.4- s/p 4 units PRBCs -continue to monitor H/H and transfuse as needed -no active signs of bleeding overnight or this am -abd CT showed diverticulosis but no acute process -etiology unclear -will schedule for EGD/colonoscopy tomorrow -okay for clear liquids today then NPO after MN -continue PPI and supportive care -will follow 3.DKA 4.SIRS 5.Atrial flutter- Eliquis on hold Subjective Date of service: 11/17/19 Principal diagnosis: GI bleed Interval history: No acute distress or active signs of bleeding overnight or this am. Objective - Constitutional Vitals: Temp Pulse Resp BP Pulse Ox 98.3 F 69 20 104/36 100 11/17/19 07:59 11/17/19 08:00 11/17/19 09:01 11/17/19 09:01 11/17/19 09:01 General appearance: no acute distress - EENT Eyes: PERRL, EOM intact ENT: hearing intact - Respiratory Respiratory effort: normal - Cardiovascular Rhythm: regularly irregular - Gastrointestinal General gastrointestinal: Present: soft, non-tender, non-distended, normal bowel sounds - Neurologic Neurological: alert and oriented x3 - Labs CBC & Chem 7: 11/17/19 03:29 11/17/19 03:29 Labs: Laboratory Results - last 24 hr 11/15/19 11/16/19 11/16/19 17:30 13:33 13:33 WBC 11.0 RBC 2.15 L Hgb 6.4 L Hct 18.5 L* MCV 86 MCH 30 MCHC 35 H RDW 15.1 Plt Count 141 Lymph % (Auto) 21.8 [place] % (Auto) 6.8 Eos % (Auto) 0.3 Baso % (Auto) 0.3 Lymph # 2.4 [place] # 0.7 Eos # 0.0 Baso # 0.0 Seg Neutrophils % 70.8 H Seg Neutrophils # 7.8 H Sodium Potassium Chloride Carbon Dioxide Anion Gap BUN Creatinine Estimated GFR BUN/Creatinine Ratio Glucose POC Glucose Calcium Phosphorus 3.40 D Magnesium 2.10 Total Bilirubin AST ALT Alkaline Phosphatase Total Protein Albumin Albumin/Globulin Ratio Blood Type A POSITIVE Antibody Screen Negative Crossmatch See Detail 11/16/19 11/16/19 11/16/19 13:33 13:48 17:58 WBC RBC Hgb Hct MCV MCH MCHC RDW Plt Count Lymph % (Auto) [place] % (Auto) Eos % (Auto) Baso % (Auto) Lymph # [place] # Eos # Baso # Seg Neutrophils % Seg Neutrophils # Sodium 143 Potassium 4.0 Chloride 114.1 H Carbon Dioxide 20 L Anion Gap 13 BUN 26 H Creatinine 0.5 L Estimated GFR > 60 BUN/Creatinine Ratio 52 Glucose 151 H POC Glucose 165 H 216 H Calcium 7.0 L Phosphorus Magnesium Total Bilirubin AST ALT Alkaline Phosphatase Total Protein Albumin Albumin/Globulin Ratio Blood Type Antibody Screen Crossmatch 11/16/19 11/17/19 11/17/19 23:13 01:59 03:29 WBC 9.0 RBC 3.17 L Hgb 9.4 L D Hct 27.7 L D MCV 88 MCH 30 MCHC 34 RDW 15.7 H Plt Count 149 Lymph % (Auto) 30.3 [place] % (Auto) 7.7 H Eos % (Auto) 1.5 Baso % (Auto) 0.9 Lymph # 2.7 [place] # 0.7 Eos # 0.1 Baso # 0.1 Seg Neutrophils % 59.6 Seg Neutrophils # 5.4 Sodium 144 Potassium 4.5 Chloride 116.3 H Carbon Dioxide 21 L Anion Gap 11 BUN 13 Creatinine 0.5 L Estimated GFR > 60 BUN/Creatinine Ratio 26 Glucose 182 H POC Glucose 194 H Calcium 7.3 L Phosphorus Magnesium Total Bilirubin AST ALT Alkaline Phosphatase Total Protein Albumin Albumin/Globulin Ratio Blood Type Antibody Screen Crossmatch 11/17/19 11/17/19 11/17/19 03:29 07:50 11:51 WBC RBC Hgb Hct MCV MCH MCHC RDW Plt Count Lymph % (Auto) [place] % (Auto) Eos % (Auto) Baso % (Auto) Lymph # [place] # Eos # Baso # Seg Neutrophils % Seg Neutrophils # Sodium 144 Potassium 4.1 Chloride 112.3 H Carbon Dioxide 25 Anion Gap 11 BUN 11 Creatinine 0.6 L Estimated GFR > 60 BUN/Creatinine Ratio 18 Glucose 157 H POC Glucose 121 H 160 H Calcium 7.4 L Phosphorus Magnesium 2.10 Total Bilirubin 0.40 AST 15 ALT 11 Alkaline Phosphatase 30 L Total Protein 4.7 L Albumin 3.1 L Albumin/Globulin Ratio 1.9 Blood Type Antibody Screen Crossmatch
[2019-11-17] MEDS ORDERED: SODIUM CHLORIDE 0.9% 1000 ML 1,000 ML ONE (13:42)
[2019-11-17] MEDS ORDERED: MORPHINE 2 MG/1 ML INJ ONE (14:16)
[2019-11-17] MEDS: SODIUM CHLORIDE 0.9% 1000 ML 1,000 ML IV SCH (14:25)
[2019-11-17] MEDS: MORPHINE 2 MG/1 ML INJ IV PRN (14:27)
[2019-11-18] MEDS: INSULIN LISPRO 100 UNIT/ML SUB-Q SCH ×8 (00:16→21:32)
[2019-11-18] MEDS: PANTOPRAZOLE 80 MG in SODIUM CHLORIDE 0.9% 100 ML IV SCH ×3 (03:39→21:18)
[2019-11-18] MEDS: D5W/0.45% NACL 1,000 ML IV SCH (03:43)
[2019-11-18] MEDS: SODIUM CHLORIDE 0.9% 1000 ML 1,000 ML IV SCH ×3 (03:44→12:01)
[2019-11-18] MEDS: MORPHINE 2 MG/1 ML INJ IV PRN (09:40)
[2019-11-18 11:06] LABS: Basophils % (Auto) 0.7 % (0.0-1.8); Eosinophils # (Auto) 0.2 K/mm3 (0.0-0.4); Eosinophils % (Auto) 3.4 % (0.0-4.3); Hemoglobin 8.8 gm/dl (10.1-14.3); Lymphocytes # (Auto) 2.4 K/mm3 (1.2-5.4); Lymphocytes % (Auto) 34.9 % (13.4-35.0); Mean Corpuscular HGB Conc 34 % (30-34); Mean Corpuscular Volume 88 fl (79-97); Monocytes # (Auto) 0.5 K/mm3 (0.0-0.8); Monocytes % (Auto) 7.2 % (0.0-7.3); Platelet Count 153 K/mm3 (140-440); Red Blood Count 2.96 M/mm3 (3.65-5.03); Red Cell Distribution Width 15.7 % (13.2-15.2)
[2019-11-18 11:27] LABS: BUN/Creatinine Ratio 15; Blood Urea Nitrogen 6 mg/dL (7-17); Calcium 7.3 mg/dL (8.4-10.2); Hemolysis Index 7
--- NOTE | 2019-11-18 13:10 | Anesthesia Consultation ---
Anesthesia Consult and Med Hx Date of service: 11/18/19 - Airway Anesthetic Teeth Evaluation: Crowns ROM Head & Neck: Adequate Mental/Hyoid Distance: Adequate Mallampati Class: Class II Intubation Access Assessment: Probably Good - Pre-Operative Health Status ASA Pre-Surgery Classification: ASA3 Proposed Anesthetic Plan: MAC - Pulmonary Hx Smoking: No Hx Asthma: No Hx Respiratory Symptoms: No SOB: No COPD: No Home Oxygen Therapy: No Hx Pneumonia: No Hx Sleep Apnea: Yes - Cardiovascular System Hx Hypertension: Yes Hx Coronary Artery Disease: Yes Hx Heart Attack/AMI: No Hx Angina: No Hx Percutaneous Transluminal Coronary Angioplasty (PTCA): No Hx Cardia Arrhythmia: Yes Hx Pacemaker: Yes Hx Valvular Heart Disease: No Hx Heart Murmur: No Hx Peripheral Vascular Disease: No - Central Nervous System Hx Neuromuscular Disorder: No Hx Seizures: No CVA: No Hx Back Pain: Yes Hx Psychiatric Problems: No - Gastrointestinal Hx Ulcer: No Hx Gastroesophageal Reflux Disease: Yes - Endocrine Hx Renal Disease: No Hx End Stage Renal Disease: No Hx Cirrhosis: No Hx Liver Disease: No Hx Insulin Dependent Diabetes: Yes Hx Non-Insulin Dependent Diabetes: No Hx Thyroid Disease: No Hx Hypothyroidism: No Hx Hyperthyroidism: No - Hematic Hx Anemia: No Hx Sickle Cell Disease: No - Other Systems Hx Alcohol Use: No Hx Substance Use: No Hx Cancer: No Hx Obesity: Yes
[2019-11-18] MEDS ORDERED: SODIUM CHLORIDE 0.9% 1000 ML 1,000 ML ONE (13:14)
[2019-11-18] MEDS ORDERED: SODIUM CHLORIDE 0.9% 1000 ML 1,000 ML IV SCH (13:15)
--- NOTE | 2019-11-18 13:18 | Anesthesia Day of Surgery ---
Anesthesia Day of Surgery - Day of Surgery Patient Examined: Yes Patient H&P Reviewed: Yes Patient is NPO: Yes Beta Blockers: No
[2019-11-18] MEDS ORDERED: LIDOCAINE MPF (2%) 20 MG/1 ML VIAL 5 ML ONE (13:30)
--- NOTE | 2019-11-18 14:43 | Gastroenterology Progress Note ---
Assessment and Plan GI: pt w/o further signs bleeding - was to get EGD/colonoscopy but unable to sedate since no cardiac clearance and Anaes defers sedating - would continue follow h/h, ppi qd - cardiac consult per primary team - alternatively procedures can be done as outpt - Dr. Sanchez food concession manager this wknd, can recall if get cardiac clearance and wants to proceed w/ procedures as inpt Subjective Date of service: 11/18/19 Principal diagnosis: GI bleed Interval history: - no signs bleeding overnight Objective - Constitutional Vitals: Temp Pulse Resp BP Pulse Ox 98.4 F 74 9 L 124/62 96 11/18/19 13:25 11/18/19 13:25 11/18/19 13:25 11/18/19 13:25 11/18/19 13:25 General appearance: no acute distress - EENT Eyes: PERRL - Respiratory Respiratory: bilateral: CTA - Cardiovascular Rhythm: regular Heart Sounds: Present: S1 & S2 - Gastrointestinal General gastrointestinal: Present: soft, non-tender, non-distended - Labs CBC & Chem 7: 11/18/19 09:20 11/18/19 09:20 Labs: Laboratory Results - last 24 hr 11/17/19 11/17/19 11/17/19 14:31 18:26 22:10 WBC RBC Hgb Hct MCV MCH MCHC RDW Plt Count Lymph % (Auto) [place] % (Auto) Eos % (Auto) Baso % (Auto) Lymph # [place] # Eos # Baso # Seg Neutrophils % Seg Neutrophils # Sodium Potassium Chloride Carbon Dioxide Anion Gap BUN Creatinine Estimated GFR BUN/Creatinine Ratio Glucose POC Glucose 240 H 140 H 201 H Calcium Magnesium 11/18/19 11/18/19 11/18/19 07:45 09:20 09:20 WBC 6.7 RBC 2.96 L Hgb 8.8 L Hct 26.0 L MCV 88 MCH 30 MCHC 34 RDW 15.7 H Plt Count 153 Lymph % (Auto) 34.9 [place] % (Auto) 7.2 Eos % (Auto) 3.4 Baso % (Auto) 0.7 Lymph # 2.4 [place] # 0.5 Eos # 0.2 Baso # 0.0 Seg Neutrophils % 53.8 Seg Neutrophils # 3.6 Sodium 145 Potassium 4.0 Chloride 114.5 H Carbon Dioxide 22 Anion Gap 13 BUN 6 L Creatinine 0.4 L Estimated GFR > 60 BUN/Creatinine Ratio 15 Glucose 94 POC Glucose 116 H Calcium 7.3 L Magnesium 2.00 11/18/19 12:02 WBC RBC Hgb Hct MCV MCH MCHC RDW Plt Count Lymph % (Auto) [place] % (Auto) Eos % (Auto) Baso % (Auto) Lymph # [place] # Eos # Baso # Seg Neutrophils % Seg Neutrophils # Sodium Potassium Chloride Carbon Dioxide Anion Gap BUN Creatinine Estimated GFR BUN/Creatinine Ratio Glucose POC Glucose 103 Calcium Magnesium
--- NOTE | 2019-11-18 16:11 | Progress Note ---
Assessment and Plan Assessment and plan: --Acute GI bleeding: No new Episodes of bleeding, IV Protonix, GI evaluated Eliquis held, EGD is rescheduled, Soft diet as tolerated Cardiology consult for clearance Discussed with --DKA resolved Accu-Chek sliding scale coverage Long-acting insulin, A1c 7.1 --Acute blood loss anemia; Requiring total 4 units of PRBC, Hemo-globin today is 9.4 Closely monitor --Hyperkalemia; corrected, --Hypomagnesemia;Corrected, --Hypophosphatemia;Corrected monitor electrolytes --SIRS; it is negative to date --Atrial flutter: Rate control, hold eliquis held due to GI bleeding Cardiology consulted. --Full CODE STATUS --DVT prophylaxis; SCDs No pharmacologic anticoagulation in ne view of severe bleeding and severe anemia follow-up EGD and GI recommendations Cardiology evaluation and recommendations Disposition; discharged home when stable Care discussed in detail with Dr. Bean[son-in-law] As well as the patient's daughter Answered all their questions Plan of care discussed with the GI Dr. Perales History Interval history: Sincerely and examined this morning medical records reviewed Patient was initially scheduled for EGD today However anesthesiologist requested cardiology clearance Patient has h/o A. fib and permanent pacemaker, Asymptomatic No new episodes of bleeding Patient feels better , vital signs reviewed Hospitalist Physical - Constitutional Vitals: Temp Pulse Resp BP Pulse Ox 98.4 F 74 9 L 124/62 96 11/18/19 13:25 11/18/19 13:25 11/18/19 13:25 11/18/19 13:25 11/18/19 13:25 General appearance: Present: no acute distress, well-nourished, obese - EENT Eyes: Present: PERRL, EOM intact - Neck Neck: Present: supple, normal ROM - Respiratory Respiratory effort: normal Respiratory: bilateral: diminished, negative: rales, rhonchi, wheezing - Cardiovascular Rhythm: regular Heart Sounds: Present: S1 & S2 - Extremities Extremities: no ischemia, No edema - Abdominal General gastrointestinal: soft, non-tender, non-distended, normal bowel sounds - Integumentary Integumentary: Present: clear, warm - Psychiatric Psychiatric: appropriate mood/affect, cooperative - Neurologic Neurologic: moves all extremities Results - Labs CBC & Chem 7: 11/18/19 09:20 11/18/19 09:20 Labs: Laboratory Last Values WBC 6.7 K/mm3 (4.5-11.0) 11/18/19 09:20 RBC 2.96 M/mm3 (3.65-5.03) L 11/18/19 09:20 Hgb 8.8 gm/dl (10.1-14.3) L 11/18/19 09:20 Hct 26.0 % (30.3-42.9) L 11/18/19 09:20 MCV 88 fl (79-97) 11/18/19 09:20 MCH 30 pg (28-32) 11/18/19 09:20 MCHC 34 % (30-34) 11/18/19 09:20 RDW 15.7 % (13.2-15.2) H 11/18/19 09:20 Plt Count 153 K/mm3 (140-440) 11/18/19 09:20 Lymph % (Auto) 34.9 % (13.4-35.0) 11/18/19 09:20 [place] % (Auto) 7.2 % (0.0-7.3) 11/18/19 09:20 Eos % (Auto) 3.4 % (0.0-4.3) 11/18/19 09:20 Baso % (Auto) 0.7 % (0.0-1.8) 11/18/19 09:20 Lymph # 2.4 K/mm3 (1.2-5.4) 11/18/19 09:20 [place] # 0.5 K/mm3 (0.0-0.8) 11/18/19 09:20 Eos # 0.2 K/mm3 (0.0-0.4) 11/18/19 09:20 Baso # 0.0 K/mm3 (0.0-0.1) 11/18/19 09:20 Seg Neutrophils % 53.8 % (40.0-70.0) 11/18/19 09:20 Seg Neutrophils # 3.6 K/mm3 (1.8-7.7) 11/18/19 09:20 PT 19.1 Sec. (12.2-14.9) H 11/15/19 16:22 INR 1.58 (0.87-1.13) H 11/15/19 16:22 APTT 26.4 Sec. (24.2-36.6) 11/15/19 16:22 VBG pH 7.295 (7.320-7.420) L 11/15/19 18:32 Sodium 145 mmol/L (137-145) 11/18/19 09:20 Potassium 4.0 mmol/L (3.6-5.0) 11/18/19 09:20 Chloride 114.5 mmol/L (98-107) H 11/18/19 09:20 Carbon Dioxide 22 mmol/L (22-30) 11/18/19 09:20 Anion Gap 13 mmol/L 11/18/19 09:20 BUN 6 mg/dL (7-17) L 11/18/19 09:20 Creatinine 0.4 mg/dL (0.7-1.2) L 11/18/19 09:20 Estimated GFR > 60 ml/min 11/18/19 09:20 BUN/Creatinine Ratio 15 % 11/18/19 09:20 Glucose 94 mg/dL (65-100) 11/18/19 09:20 POC Glucose 103 (70-105) 11/18/19 12:02 Hemoglobin A1c 7.1 % (4-6) H 11/15/19 23:07 Calcium 7.3 mg/dL (8.4-10.2) L 11/18/19 09:20 Phosphorus 3.40 mg/dL (2.5-4.5) D 11/16/19 13:33 Magnesium 2.00 mg/dL (1.7-2.3) 11/18/19 09:20 Total Bilirubin 0.40 mg/dL (0.1-1.2) 11/17/19 03:29 AST 15 units/L (5-40) 11/17/19 03:29 ALT 11 units/L (7-56) 11/17/19 03:29 Alkaline Phosphatase 30 units/L (35-129) L 11/17/19 03:29 Total Protein 4.7 g/dL (6.3-8.2) L 11/17/19 03:29 Albumin 3.1 g/dL (3.9-5) L 11/17/19 03:29 Albumin/Globulin Ratio 1.9 % 11/17/19 03:29 Lipase 17 units/L (13-60) 11/15/19 16:22 Urine Color Yellow (Yellow) 11/16/19 01:56 Urine Turbidity Slightly-cloudy (Clear) 11/16/19 01:56 Urine pH 5.0 (5.0-7.0) 11/16/19 01:56 Ur Specific [place] 1.016 (1.003-1.030) 11/16/19 01:56 Urine Protein <15 mg/dl mg/dL (Negative) 11/16/19 01:56 Urine Glucose (UA) >=500 mg/dL (Negative) 11/16/19 01:56 Urine Ketones Neg mg/dL (Negative) 11/16/19 01:56 Urine Blood Lg (Negative) 11/16/19 01:56 Urine Nitrite Neg (Negative) 11/16/19 01:56 Urine Bilirubin Neg (Negative) 11/16/19 01:56 Urine Urobilinogen < 2.0 mg/dL (<2.0) 11/16/19 01:56 Ur Leukocyte Esterase Tr (Negative) 11/16/19 01:56 Urine WBC (Auto) 7.0 /HPF (0.0-6.0) H 11/16/19 01:56 Urine RBC (Auto) 4.0 /HPF (0.0-6.0) 11/16/19 01:56 U Epithel Cells (Auto) 6.0 /HPF (0-13.0) 11/16/19 01:56 Urine Mucus Few /HPF 11/16/19 01:56 Blood Type A POSITIVE 11/15/19 17:30 Antibody Screen Negative 11/15/19 17:30 Crossmatch See Detail 11/15/19 17:30 Active Medications - Current Medications Current Medications: Generic Name Dose Route Start Last Admin Trade Name Freq PRN Reason Stop Dose Admin Acetaminophen 650 mg 11/15/19 22:32 Tylenol PO Q4H PRN Pain MILD(1-3)/Fever >100.5/NGUYEN Pantoprazole Sodium 80 mg/ 100 mls @ 10 mls/hr 11/15/19 19:00 11/18/19 06:46 Sodium Chloride IV 8 mg/hr DIRECT MANOHAR 10 mls/hr Administration 8 MG/HR Dextrose/Sodium Chloride 1,000 mls @ 150 mls/hr 11/15/19 23:00 11/18/19 03:43 D5/0.45ns IV 150 mls/hr DIRECT MANOHAR Administration Sodium Chloride 250 mls @ 999 mls/hr 11/16/19 06:45 11/16/19 06:45 Nacl 0.9% 250ml IV 999 mls/hr ONCE MANOHAR Administration Sodium Chloride 1,000 mls @ 125 mls/hr 11/17/19 10:00 11/18/19 12:01 Nacl 0.9% 1000 Ml IV 125 mls/hr DIRECT MANOHAR Administration Sodium Chloride 1,000 mls @ 50 mls/hr 11/18/19 13:15 Nacl 0.9% 1000 Ml IV DIRECT MANHOAR Insulin Glargine 35 units 11/16/19 22:00 11/17/19 23:59 Lantus SUB-Q 35 units QHS MANOHAR Administration Insulin Human Lispro 0 unit 11/16/19 16:30 11/18/19 12:33 Humalog SUB-Q Not Given ACHS [facility] Protocol Insulin Human Lispro 8 unit 11/16/19 16:30 11/18/19 12:33 Humalog SUB-Q Not Given AC MANOHAR Morphine Sulfate 2 mg 11/15/19 22:32 11/18/19 09:40 Morphine IV 2 mg Q4H PRN Administration Pain, Moderate (4-6) Ondansetron HCl 4 mg 11/15/19 22:32 Zofran IV Q4H PRN Nausea And Vomiting Pravastatin Sodium 80 mg 11/16/19 22:00 11/17/19 23:54 Pravachol PO 80 mg QHS MANOHAR Administration Sodium Chloride 10 ml 11/16/19 10:00 11/18/19 09:40 Sodium Chloride Flush Syringe 10 Ml IV 10 ml BID MANOHAR Administration Sodium Chloride 10 ml 11/15/19 22:32 Sodium Chloride Flush Syringe 10 Ml IV PRN PRN LINE FLUSH
[2019-11-18] MEDS: PRAVASTATIN 80 MG TAB PO SCH (21:20)
[2019-11-18] MEDS: INSULIN GLARGINE 100 UNITS/ML SUB-Q SCH (22:09)
[2019-11-19] MEDS: MORPHINE 2 MG/1 ML INJ IV PRN ×2 (00:53→12:54)
[2019-11-19 08:36] LABS: Basophils % (Auto) 0.6 % (0.0-1.8); Eosinophils # (Auto) 0.3 K/mm3 (0.0-0.4); Eosinophils % (Auto) 4.1 % (0.0-4.3); Hematocrit 27.2 % (30.3-42.9); Lymphocytes # (Auto) 2.7 K/mm3 (1.2-5.4); Lymphocytes % (Auto) 41.7 % (13.4-35.0); Mean Corpuscular HGB Conc 33 % (30-34); Mean Corpuscular Volume 89 fl (79-97); Monocytes # (Auto) 0.5 K/mm3 (0.0-0.8); Platelet Count 169 K/mm3 (140-440); Red Blood Count 3.06 M/mm3 (3.65-5.03); Red Cell Distribution Width 15.7 % (13.2-15.2)
[2019-11-19] MEDS: INSULIN LISPRO 100 UNIT/ML SUB-Q SCH ×7 (09:24→22:01)
[2019-11-19] MEDS: PANTOPRAZOLE 80 MG in SODIUM CHLORIDE 0.9% 100 ML IV SCH ×2 (12:57→23:39)
--- NOTE | 2019-11-19 13:59 | Consultation ---
History of Present Illness Consult date: 11/19/19 Consult reason: pre op evaluation History of present illness: The patient is a 69-year-old woman with a history of sick sinus syndrome, paroxysmal atrial flutter, on oral anticoagulation with Eliquis. She presented to the hospital at this time with GI bleed, prompting a temporary hold on the oral anticoagulation, followed by a plan for GI endoscopy. Cardiology consultation is requested for preoperative cardiac assessment. Patient had a permanent pacemaker placement in August 2019, no history of coronary artery disease or congestive heart failure. Serial echocardiograms have reported left ventricular systolic ejection fraction of 55%. On this presentation, her initial ECG was sinus rhythm with nonspecific ST and T-wave changes, no acute ischemia or infarction. On telemetry, she has intermittent atrial flutter, and intermittent ventricular pacemaker complexes on demand. The patient is alert and oriented to her room on the telemetry floor, no chest pain, no shortness of breath, no palpitations, no lower extremity edema. Cardiac status is asymptomatic. Past History Past Medical History: atrial fib Medications and Allergies Allergies Allergy/AdvReac Type Severity Reaction Status Date / Time aspirin Allergy Unknown Verified 08/23/19 22:55 codeine Allergy Unknown Verified 08/23/19 22:55 Penicillins Allergy Unknown Verified 08/23/19 22:55 Home Medications Medication Instructions Recorded Confirmed Last Taken Type Furosemide [Lasix TAB] 40 mg PO QDAY 08/24/19 11/15/19 1 Day Ago History ~11/14/19 Insulin Glargine [Lantus VIAL] 35 units SQ QHS 08/24/19 11/15/19 1 Day Ago History ~11/14/19 Lispro Insulin [HumaLOG] 20 units SQ QAC 08/24/19 11/15/19 1 Day Ago History ~11/14/19 Simvastatin 40 mg PO QDAY 08/24/19 11/15/19 1 Day Ago History ~11/14/19 Apixaban [Eliquis] 5 mg PO BID 11/15/19 11/15/19 1 Day Ago History ~11/14/19 Simvastatin 40 mg PO DAILY 11/15/19 11/15/19 1 Day Ago History ~11/14/19 Tizanidine HCl [Tizanidine 2mg tab] 4 mg PO DAILY 11/15/19 11/15/19 1 Day Ago History ~11/14/19 dilTIAZem HCL [Diltiazem HCl] 120 mg PO BID 11/15/19 11/15/19 1 Day Ago History ~11/14/19 Active Meds: Active Medications Acetaminophen (Tylenol) 650 mg PO Q4H PRN PRN Reason: Pain MILD(1-3)/Fever >100.5/NGUYEN Pantoprazole Sodium 80 mg/ (Sodium Chloride) 100 mls @ 10 mls/hr IV DIRECT MANOHAR Last Admin: 11/19/19 12:57 Dose: 8 mg/hr, 10 mls/hr Documented by: Sodium Chloride (Nacl 0.9% 250ml) 250 mls @ 999 mls/hr IV ONCE MANOHAR Last Admin: 11/16/19 06:45 Dose: 999 mls/hr Documented by: Sodium Chloride (Nacl 0.9% 1000 Ml) 1,000 mls @ 50 mls/hr IV DIRECT MANOHAR Insulin Glargine (Lantus) 35 units SUB-Q QHS [facility] Last Admin: 11/18/19 22:09 Dose: 35 units Documented by: Insulin Human Lispro (Humalog) 0 unit SUB-Q ACHS [facility]; Protocol Last Admin: 11/19/19 13:27 Dose: 4 unit Documented by: Insulin Human Lispro (Humalog) 8 unit SUB-Q [facility] Last Admin: 11/19/19 13:27 Dose: Not Given Documented by: Morphine Sulfate (Morphine) 2 mg IV Q4H PRN PRN Reason: Pain, Moderate (4-6) Last Admin: 11/19/19 12:54 Dose: 2 mg Documented by: Ondansetron HCl (Zofran) 4 mg IV Q4H PRN PRN Reason: Nausea And Vomiting Last Admin: 11/19/19 12:54 Dose: 4 mg Documented by: Pravastatin Sodium (Pravachol) 80 mg PO QHS [facility] Last Admin: 11/18/19 21:20 Dose: 80 mg Documented by: Sodium Chloride (Sodium Chloride Flush Syringe 10 Ml) 10 ml IV BID [facility] Last Admin: 11/19/19 12:57 Dose: 10 ml Documented by: Sodium Chloride (Sodium Chloride Flush Syringe 10 Ml) 10 ml IV PRN PRN PRN Reason: LINE FLUSH Review of Systems Cardiovascular: no chest pain, no orthopnea, no palpitations, no rapid/irregular heart beat, no edema, no syncope, no lightheadedness, no shortness of breath Physical Examination Vital Signs Temp Pulse Resp BP Pulse Ox 97.7 F 78 20 104/26 96 11/15/19 15:25 11/15/19 15:25 11/15/19 15:25 11/15/19 15:25 11/15/19 15:25 General appearance: no acute distress HEENT: Positive: PERRL Neck: Positive: neck supple Cardiac: Positive: irregularly irregular Lungs: Positive: Normal Exam Neuro: Positive: Grossly Intact Abdomen: Positive: Soft Female genitourinary: deferred Skin: Positive: Clear Extremities: Absent: edema Results 11/19/19 07:06 11/18/19 09:20 CBC 11/19/19 Range/Units 07:06 WBC 6.6 (4.5-11.0) K/mm3 RBC 3.06 L (3.65-5.03) M/mm3 Hgb 9.0 L (10.1-14.3) gm/dl Hct 27.2 L (30.3-42.9) % Plt Count 169 (140-440) K/mm3 Lymph # 2.7 (1.2-5.4) K/mm3 [place] # 0.5 (0.0-0.8) K/mm3 Eos # 0.3 (0.0-0.4) K/mm3 Baso # 0.0 (0.0-0.1) K/mm3 EKG interpretations - Telemetry EKG Rhythm: Sinus Rhythm Assessment and Plan - Patient Problems (1) Pre-op evaluation Current Visit: Yes Status: Acute Plan to address problem: Patient is awaiting GI endoscopy for suspected GI bleed. Okay to proceed with GI endoscopy, low cardiac risk. Following GI endoscopy, I will await recommendations regarding resumption of long-term oral anticoagulation.
--- NOTE | 2019-11-19 14:38 | Gastroenterology Progress Note ---
Assessment and Plan GI bleed - no signs of active bleeding at present time, H/H stable. cleared by cardiology for endoscopy. will plan for egd/colonoscopy tomorrow; prep orders placed. Subjective Date of service: 11/19/19 Principal diagnosis: GI bleed Interval history: pt seen and examined; denies further bleeding episodes overnight/today. denies abd pain Objective - Constitutional Vitals: Temp Pulse Resp BP Pulse Ox 97.5 F L 69 18 139/61 99 11/19/19 09:09 11/19/19 05:03 11/19/19 09:09 11/19/19 09:09 11/19/19 12:15 General appearance: no acute distress - Respiratory Respiratory effort: normal Respiratory: bilateral: CTA - Cardiovascular Rhythm: regular Heart Sounds: Present: S1 & S2 - Gastrointestinal General gastrointestinal: Present: soft, non-tender, non-distended - Psychiatric Psychiatric: appropriate mood/affect - Labs CBC & Chem 7: 11/19/19 07:06 11/18/19 09:20 Labs: Laboratory Results - last 24 hr 11/18/19 11/19/19 11/19/19 16:27 07:06 09:21 WBC 6.6 RBC 3.06 L Hgb 9.0 L Hct 27.2 L MCV 89 MCH 30 MCHC 33 RDW 15.7 H Plt Count 169 Lymph % (Auto) 41.7 H [place] % (Auto) 7.0 Eos % (Auto) 4.1 Baso % (Auto) 0.6 Lymph # 2.7 [place] # 0.5 Eos # 0.3 Baso # 0.0 Seg Neutrophils % 46.6 Seg Neutrophils # 3.1 POC Glucose 172 H 77 11/19/19 11:37 WBC RBC Hgb Hct MCV MCH MCHC RDW Plt Count Lymph % (Auto) [place] % (Auto) Eos % (Auto) Baso % (Auto) Lymph # [place] # Eos # Baso # Seg Neutrophils % Seg Neutrophils # POC Glucose 211 H
[2019-11-19] MEDS ORDERED: POLYETHYLENE GLYCOL/ELECT SOLN 4000 ML PO ONE (14:46)
--- NOTE | 2019-11-19 17:49 | Progress Note ---
Assessment and Plan Assessment and plan: --Acute GI bleeding; no new episodes of bleeding Cardiology cleared for endoscopy GI has scheduled for EGD colonoscopy tomorrow N.p.o. from midnight --Acute blood loss anemia; received 4 units PRBC transfusion H&H significantly improved --DKA; resolved Accu-Chek sliding scale coverage ADA diet Long-acting insulin adjust as needed --Atrial flutter; rate controlled Continue beta-blockers, Eliquis held due to GI bleeding Cardiology evaluation noted and appreciated --SIRS; resolved --Obesity; BMI 36.9 Advised weight reduction when stable --Full CODE STATUS --DVT prophylaxis; SCDs follow-up endoscopy and GI recommendations Cardiology cleared for the procedure Disposition; discharged home when stable Plan of care discussed with the patient and her nurse History Interval history: Patient seen and examined Patient's chart and medication list reviewed No new episodes of GI bleeding GI evaluated scheduled for EGD colonoscopy tomorrow Patient feels better Vital signs noted Hospitalist Physical - Constitutional Vitals: Temp Pulse Resp BP Pulse Ox 97.5 F L 65 18 139/61 99 11/19/19 09:09 11/19/19 10:00 11/19/19 09:09 11/19/19 09:09 11/19/19 12:15 General appearance: Present: no acute distress, well-nourished, obese - EENT Eyes: Present: PERRL, EOM intact - Neck Neck: Present: supple, normal ROM - Respiratory Respiratory effort: normal Respiratory: bilateral: diminished, negative: rales, rhonchi, wheezing - Cardiovascular Rhythm: regular Heart Sounds: Present: S1 & S2 - Extremities Extremities: no ischemia, No edema - Abdominal General gastrointestinal: soft, non-tender, non-distended - Integumentary Integumentary: Present: clear, warm - Psychiatric Psychiatric: appropriate mood/affect, cooperative - Neurologic Neurologic: CNII-XII intact, moves all extremities Results - Labs CBC & Chem 7: 11/19/19 07:06 11/18/19 09:20 Labs: Laboratory Last Values WBC 6.6 K/mm3 (4.5-11.0) 11/19/19 07:06 RBC 3.06 M/mm3 (3.65-5.03) L 11/19/19 07:06 Hgb 9.0 gm/dl (10.1-14.3) L 11/19/19 07:06 Hct 27.2 % (30.3-42.9) L 11/19/19 07:06 MCV 89 fl (79-97) 11/19/19 07:06 MCH 30 pg (28-32) 11/19/19 07:06 MCHC 33 % (30-34) 11/19/19 07:06 RDW 15.7 % (13.2-15.2) H 11/19/19 07:06 Plt Count 169 K/mm3 (140-440) 11/19/19 07:06 Lymph % (Auto) 41.7 % (13.4-35.0) H 11/19/19 07:06 [place] % (Auto) 7.0 % (0.0-7.3) 11/19/19 07:06 Eos % (Auto) 4.1 % (0.0-4.3) 11/19/19 07:06 Baso % (Auto) 0.6 % (0.0-1.8) 11/19/19 07:06 Lymph # 2.7 K/mm3 (1.2-5.4) 11/19/19 07:06 [place] # 0.5 K/mm3 (0.0-0.8) 11/19/19 07:06 Eos # 0.3 K/mm3 (0.0-0.4) 11/19/19 07:06 Baso # 0.0 K/mm3 (0.0-0.1) 11/19/19 07:06 Seg Neutrophils % 46.6 % (40.0-70.0) 11/19/19 07:06 Seg Neutrophils # 3.1 K/mm3 (1.8-7.7) 11/19/19 07:06 PT 19.1 Sec. (12.2-14.9) H 11/15/19 16:22 INR 1.58 (0.87-1.13) H 11/15/19 16:22 APTT 26.4 Sec. (24.2-36.6) 11/15/19 16:22 VBG pH 7.295 (7.320-7.420) L 11/15/19 18:32 Sodium 145 mmol/L (137-145) 11/18/19 09:20 Potassium 4.0 mmol/L (3.6-5.0) 11/18/19 09:20 Chloride 114.5 mmol/L (98-107) H 11/18/19 09:20 Carbon Dioxide 22 mmol/L (22-30) 11/18/19 09:20 Anion Gap 13 mmol/L 11/18/19 09:20 BUN 6 mg/dL (7-17) L 11/18/19 09:20 Creatinine 0.4 mg/dL (0.7-1.2) L 11/18/19 09:20 Estimated GFR > 60 ml/min 11/18/19 09:20 BUN/Creatinine Ratio 15 % 11/18/19 09:20 Glucose 94 mg/dL (65-100) 11/18/19 09:20 POC Glucose 149 (70-105) H 11/19/19 16:18 Hemoglobin A1c 7.1 % (4-6) H 11/15/19 23:07 Calcium 7.3 mg/dL (8.4-10.2) L 11/18/19 09:20 Phosphorus 3.40 mg/dL (2.5-4.5) D 11/16/19 13:33 Magnesium 2.00 mg/dL (1.7-2.3) 11/18/19 09:20 Total Bilirubin 0.40 mg/dL (0.1-1.2) 11/17/19 03:29 AST 15 units/L (5-40) 11/17/19 03:29 ALT 11 units/L (7-56) 11/17/19 03:29 Alkaline Phosphatase 30 units/L (35-129) L 11/17/19 03:29 Total Protein 4.7 g/dL (6.3-8.2) L 11/17/19 03:29 Albumin 3.1 g/dL (3.9-5) L 11/17/19 03:29 Albumin/Globulin Ratio 1.9 % 11/17/19 03:29 Lipase 17 units/L (13-60) 11/15/19 16:22 Urine Color Yellow (Yellow) 11/16/19 01:56 Urine Turbidity Slightly-cloudy (Clear) 11/16/19 01:56 Urine pH 5.0 (5.0-7.0) 11/16/19 01:56 Ur Specific [place] 1.016 (1.003-1.030) 11/16/19 01:56 Urine Protein <15 mg/dl mg/dL (Negative) 11/16/19 01:56 Urine Glucose (UA) >=500 mg/dL (Negative) 11/16/19 01:56 Urine Ketones Neg mg/dL (Negative) 11/16/19 01:56 Urine Blood Lg (Negative) 11/16/19 01:56 Urine Nitrite Neg (Negative) 11/16/19 01:56 Urine Bilirubin Neg (Negative) 11/16/19 01:56 Urine Urobilinogen < 2.0 mg/dL (<2.0) 11/16/19 01:56 Ur Leukocyte Esterase Tr (Negative) 11/16/19 01:56 Urine WBC (Auto) 7.0 /HPF (0.0-6.0) H 11/16/19 01:56 Urine RBC (Auto) 4.0 /HPF (0.0-6.0) 11/16/19 01:56 U Epithel Cells (Auto) 6.0 /HPF (0-13.0) 11/16/19 01:56 Urine Mucus Few /HPF 11/16/19 01:56 Blood Type A POSITIVE 11/15/19 17:30 Antibody Screen Negative 11/15/19 17:30 Crossmatch See Detail 11/15/19 17:30 Active Medications - Current Medications Current Medications: Generic Name Dose Route Start Last Admin Trade Name Freq PRN Reason Stop Dose Admin Acetaminophen 650 mg 11/15/19 22:32 Tylenol PO Q4H PRN Pain MILD(1-3)/Fever >100.5/NGUYEN Pantoprazole Sodium 80 mg/ 100 mls @ 10 mls/hr 11/15/19 19:00 11/19/19 12:57 Sodium Chloride IV 8 mg/hr DIRECT MANOHAR 10 mls/hr Administration 8 MG/HR Sodium Chloride 250 mls @ 999 mls/hr 11/16/19 06:45 11/16/19 06:45 Nacl 0.9% 250ml IV 999 mls/hr ONCE MANOHAR Administration Sodium Chloride 1,000 mls @ 50 mls/hr 11/18/19 13:15 Nacl 0.9% 1000 Ml IV DIRECT MANOHAR Insulin Glargine 35 units 11/16/19 22:00 01/03/20 22:09 Lantus SUB-Q 35 units QHS MANOHAR Administration Insulin Human Lispro 0 unit 11/16/19 16:30 11/19/19 13:27 Humalog SUB-Q 4 unit ACHS MANOHAR Administration Protocol Insulin Human Lispro 8 unit 11/16/19 16:30 11/19/19 17:42 Humalog SUB-Q 8 unit AC MANOHAR Administration Morphine Sulfate 2 mg 11/15/19 22:32 11/19/19 12:54 Morphine IV 2 mg Q4H PRN Administration Pain, Moderate (4-6) Ondansetron HCl 4 mg 11/15/19 22:32 11/19/19 12:54 Zofran IV 4 mg Q4H PRN Administration Nausea And Vomiting Pravastatin Sodium 80 mg 11/16/19 22:00 11/18/19 21:20 Pravachol PO 80 mg QHS MANOHAR Administration Sodium Chloride 10 ml 11/16/19 10:00 11/19/19 12:57 Sodium Chloride Flush Syringe 10 Ml IV 10 ml BID MANOHAR Administration Sodium Chloride 10 ml 11/15/19 22:32 Sodium Chloride Flush Syringe 10 Ml IV PRN PRN LINE FLUSH
[2019-11-19] MEDS: PRAVASTATIN 80 MG TAB PO SCH (22:01)
[2019-11-19] MEDS: INSULIN GLARGINE 100 UNITS/ML SUB-Q SCH (22:04)
[2019-11-20] MEDS: MORPHINE 2 MG/1 ML INJ IV PRN (05:40)
[2019-11-20 06:26] LABS: Basophils % (Auto) 0.5 % (0.0-1.8); Eosinophils # (Auto) 0.3 K/mm3 (0.0-0.4); Eosinophils % (Auto) 5.5 % (0.0-4.3); Hematocrit 26.4 % (30.3-42.9); Hemoglobin 8.8 gm/dl (10.1-14.3); Lymphocytes # (Auto) 1.8 K/mm3 (1.2-5.4); Lymphocytes % (Auto) 33.9 % (13.4-35.0); Mean Corpuscular HGB Conc 34 % (30-34); Mean Corpuscular Volume 89 fl (79-97); Monocytes # (Auto) 0.4 K/mm3 (0.0-0.8); Monocytes % (Auto) 7.4 % (0.0-7.3); Platelet Count 183 K/mm3 (140-440); Red Blood Count 2.98 M/mm3 (3.65-5.03); Red Cell Distribution Width 15.9 % (13.2-15.2)
[2019-11-20 06:53] LABS: BUN/Creatinine Ratio 10; Blood Urea Nitrogen 6 mg/dL (7-17); Hemolysis Index 4
[2019-11-20] MEDS ORDERED: SODIUM CHLORIDE 0.9% 1000 ML 1,000 ML IV SCH (07:15)
[2019-11-20] MEDS ORDERED: SODIUM CHLORIDE 0.9% 1000 ML 1,000 ML ONE (07:34)
[2019-11-20] MEDS ORDERED: PROPOFOL 200 MG/20 ML VIAL IV ONE ×2 (07:57)
[2019-11-20] MEDS ORDERED: LIDOCAINE MPF (2%) 20 MG/1 ML VIAL 5 ML ONE (08:00)
--- NOTE | 2019-11-20 08:06 | Anesthesia Consultation ---
Anesthesia Consult and Med Hx - Airway Anesthetic Teeth Evaluation: Good, Crowns ROM Head & Neck: Adequate Mental/Hyoid Distance: Inadequate Mallampati Class: Class III Intubation Access Assessment: Possibly Difficult - Pulmonary Exam CTA: Yes - Cardiac Exam Cardiac Exam: RRR - Pre-Operative Health Status ASA Pre-Surgery Classification: ASA3 Proposed Anesthetic Plan: MAC - Pulmonary Hx Smoking: No Hx Respiratory Symptoms: No Hx Sleep Apnea: (HIGH RISK CANDIS) - Cardiovascular System Hx Hypertension: Yes Hx Coronary Artery Disease: No Hx Heart Attack/AMI: No Hx Percutaneous Transluminal Coronary Angioplasty (PTCA): No Hx Cardia Arrhythmia: Yes (sick sinus syndrome, a-flutter; Eliquis held since admission) Hx Pacemaker: Yes Hx Internal Defibrillator: No - Central Nervous System CVA: No Hx Back Pain: Yes - Gastrointestinal Hx Gastroesophageal Reflux Disease: Yes - Endocrine Hx Renal Disease: No Hx Liver Disease: No Hx Insulin Dependent Diabetes: Yes (DKA this admission; resolved) Hx Thyroid Disease: No - Hematic Hx Anemia: Yes (concern for GI bleed) - Other Systems Hx Obesity: Yes (BMI 36)
--- NOTE | 2019-11-20 08:07 | Anesthesia Day of Surgery ---
Anesthesia Day of Surgery - Day of Surgery Patient Examined: Yes Patient H&P Reviewed: Yes Patient is NPO: Yes Cardiac Clearance: Yes
[2019-11-20] MEDS: INSULIN LISPRO 100 UNIT/ML SUB-Q SCH ×4 (08:14→12:37)
--- NOTE | 2019-11-20 08:33 | Post Anesthesia Evaluation ---
- Post Anesthesia Evaluation Patient Participated: Yes Airway Patent: Yes Stable Respiratory Function: Yes Nausea/Vomiting: No Temp > 96.8F: Yes Pain Manageable: Yes Adequeate Hydration: Yes Anesthesia Complications: No
--- NOTE | 2019-11-20 08:34 | Operative Report ---
Operative Report Operative Report: Esophagogastroduodenoscopy Procedure Note with Biopsies Date of procedure: 11/20/2019 Endoscopist: Jose Sanchez Pre-op diagnosis: GI bleed Post-op diagnosis: Small clean based gastric ulcer, gastritis Anesthesia: MAC Complications: No immediate complications Estimated blood loss: minimal Procedure: After consent was obtained, the patient was placed in the left lateral decubitus position. The olympus endoscope was inserted into the patient's mouth under direct vision, and advanced into the 2nd portion of the duodenum without difficulty. The patient tolerated the procedure well. The views of the mucosa were good. Patient's vital signs were monitored continuously throughout the procedure. Findings: The esophagus appeared normal. There was a small (~4 mm) clean based, superficial ulcer in the antrum of the stomach. No high risk bleeding stigmata. Mildly erythematous mucosa in the gastric antrum. Biopsies were obtained to evaluate for H pylori. Otherwise, the stomach appeared normal. The duodenum appeared normal. Impression: 1. Small, clean based gastric ulcer without high risk bleeding stigmata. 2. Mild erythematous gastric mucosa in the antrum. Biopsies obtained to evaluate for H pylori. Recommendations: -PPI daily -avoid nsaid's -follow-up pathology
--- NOTE | 2019-11-20 08:38 | Operative Report ---
Operative Report Operative Report: Colonoscopy Procedure Note Date of procedure: 11/20/2019 Endoscopist: Jose Sanchez Pre-op diagnosis: GI bleed Post-op diagnosis: Diverticulosis, internal hemorrhoids Anesthesia: MAC Complications: No immediate complications Estimated blood loss: None Procedure: After consent was obtained, the patient was placed in the left lateral decubitus position. The olympus colonoscope was inserted into the patient's rectum under direct vision, and advanced to the cecum without difficulty. The patient tolerated the procedure well. The views of the mucosa were good. The quality of prep was adequate for diagnostic purposes (scattered solid stool in the colon which prevented detailed examination for small polyps). The patient's vital signs were monitored continuously throughout the procedure. Findings: There was severe diverticulosis in the left side of the colon. Few scattered diverticula in the transverse and ascending colon. No blood seen during the procedure. Scattered solid stool in the colon which prevented detailed visualization, but no obvious significant lesions or other source of bleeding was identified. Internal hemorrhoids were visualized on retro-flexion view. Impression: 1. Diverticulosis - likely source of recent bleeding. No blood seen during the procedure. 2. Internal hemorrhoids Recommendations: -okay to restart diet and advance as tolerated -high fiber diet daily -can resume anticoagulation per cardiology recommendations -follow-up in GI clinic in 1 month Will sign off, please call as needed or with questions.
[2019-11-20 09:16] VITALS: BP 112/50
--- NOTE | 2019-11-20 13:10 | Discharge Summary ---
Providers - Providers Date of Admission: 11/15/19 19:23 Date of discharge: 11/20/19 Attending physician: MARY SEO 11/15/19 18:55 Consult to Physician [CONS] Urgent Comment: Consulting Provider: LAZ MCLAUGHLIN Physician Instructions: Reason For Exam: upper GI bleed 11/18/19 13:55 Consult to Cardiology [CONS] Urgent Consulting Provider: ERIC HARRIS Reason For Exam: SIGNIFICANT CARDIAC HX, NEEDED PRIOR TO GI PROCEDU Primary care physician: [employer] MANAGER Hospitalization Condition: Serious Disposition: DC-01 TO HOME OR SELFCARE Time spent for discharge: 32min Core Measure Documentation - Palliative Care Palliative Care/ Comfort Measures: Not Applicable - Core Measures Any of the following diagnoses?: history only Exam - Constitutional Vitals: Temp Pulse Resp BP Pulse Ox 99.2 F 70 12 112/50 96 11/20/19 08:26 11/20/19 08:49 11/20/19 08:49 11/20/19 08:49 11/20/19 08:49 General appearance: Present: no acute distress, well-nourished - EENT Eyes: Present: PERRL, EOM intact - Neck Neck: Present: supple, normal ROM - Respiratory Respiratory effort: normal Respiratory: bilateral: diminished, negative: rales, rhonchi, wheezing - Cardiovascular Rhythm: regular Heart Sounds: Present: S1 & S2 - Extremities Extremities: no ischemia, No edema - Abdominal General gastrointestinal: Present: soft, non-tender, non-distended, normal bowel sounds - Integumentary Integumentary: Present: clear, warm - Musculoskeletal Musculoskeletal: strength equal bilaterally - Psychiatric Psychiatric: appropriate mood/affect, cooperative - Neurologic Neurologic: CNII-XII intact, moves all extremities Plan Activity: advance as tolerated Diet: diabetic Additional Instructions: Follow-up lozenge maker [Dr.Keval Sanchez] in one month. High-fiber diet. If you have new episodes of bleeding contact M.D. or go to emergency room. No new Prescriptions Follow up with: ERIC HARRIS MD [Staff Physician] - 7 Days PRIMARY MD ORA [Primary Care Provider] - 7 Days GABRIELA SANCHEZ MD [Staff Physician] - 12/19/19
== END 2019-11-20 15:24 | disposition home or self-care (01) | DRG 377 ==
LOC: ED 14:58 → CC1 19:23 → 4A 11-17 08:32
PROVIDERS: ADMIT Internal Medicine; ATTEND Internal Medicine
PROC: 30233N1 Transfusion of Nonautologous Red Blood Cells into Peripheral Vein, Percutaneous Approach (ICD-10-PCS; principal; 2019-11-15)
PROC: 0DB68ZX Excision of Stomach, Via Natural or Artificial Opening Endoscopic, Diagnostic (ICD-10-PCS; 2019-11-20)
PROC: 0DJD8ZZ Inspection of Lower Intestinal Tract, Via Natural or Artificial Opening Endoscopic (ICD-10-PCS; 2019-11-20)
DX: K57.91 Diverticulosis of intestine, part unspecified, without perforation or abscess with bleeding (principal); E11.10 Type 2 diabetes mellitus with ketoacidosis without coma; D62 Acute posthemorrhagic anemia; R65.10 Systemic inflammatory response syndrome (SIRS) of non-infectious origin without acute organ dysfunction; I48.92 Unspecified atrial flutter; I10 Essential (primary) hypertension; E78.5 Hyperlipidemia, unspecified; Z95.0 Presence of cardiac pacemaker; Z79.899 Other long term (current) drug therapy; Z79.4 Long term (current) use of insulin; Z82.49 Family history of ischemic heart disease and other diseases of the circulatory system; E87.5 Hyperkalemia; Z88.6 Allergy status to analgesic agent; E83.42 Hypomagnesemia; Z88.0 Allergy status to penicillin; E83.39 Other disorders of phosphorus metabolism; I25.10 Atherosclerotic heart disease of native coronary artery without angina pectoris; K21.9 Gastro-esophageal reflux disease without esophagitis; E66.9 Obesity, unspecified; Z68.36 Body mass index [BMI] 36.0-36.9, adult; Z71.3 Dietary counseling and surveillance; K64.8 Other hemorrhoids
CPT/HCPCS: 36415; 36430; 74176; 80048; 80053; 81001; 82271; 82805; 82962; 83036; 83690; 83735; 84100; 85025; 85610; 85730; 86850; 86900; 86901; 86920; 87040; 88305; 88342; 93005; 93010; G0378; A9270-GY; C9113; J1815; J1940; J1956; J2270; J2405; J2704; J3475; J7030; J7040; J7050; P9016

== ENCOUNTER 2021-09-27 12:20 | Outpatient (CLI) | payer MEDICARE ==
--- NOTE | 2021-09-27 16:25 | XRay Report ---
Bilateral knee radiographs, frontal and lateral views of each knee provided. HISTORY: Bilateral knee pain. COMPARISON: None FINDINGS: Right knee: Moderate tricompartmental osteoarthritis, preferentially involving the medial compartment , which is moderately narrowed on weightbearing. Mild lateral tibial translation. No acute fracture. No sizable joint effusion. Left knee: Moderate to marked left knee osteoarthritis, preferentially involving the medial compartme nt. No acute fracture or significant joint effusion. Signer Name: Rafiq Dawn MD Signed: 09/27/2021 4:20 PM Workstation Name: [id number]
== END 2021-09-27 12:21 | disposition home or self-care (01) ==
LOC: XRAY 12:20
PROVIDERS: ATTEND Orthopaedic Surgery
DX: M17.0 Bilateral primary osteoarthritis of knee (principal)
CPT/HCPCS: 73565

== ENCOUNTER 2022-03-27 11:21 | Outpatient (CLI) | payer MEDICARE ==
--- NOTE | 2022-03-27 14:35 | XRay Report ---
Lumbar spine 3 views INDICATION: back pain FINDINGS: Alignment appears normal. Endplate changes seen throughout. Facet changes at L4-5 and L5-S1 . Signer Name: Tommy Chavira MD Signed: 03/27/2022 2:31 PM Workstation Name: [id number]
--- NOTE | 2022-03-27 14:51 | XRay Report ---
LEFT RIBS 4 VIEWS INDICATION / CLINICAL INFORMATION: LEFT RIB PAIN. COMPARISON: None available. FINDINGS: RIBS: No acute, displaced fracture or other acute abnormality. LUNGS: No acute findings. No pneumothorax. Signer Name: Tanner Valle MD Signed: 03/27/2022 2:46 PM Workstation Name: [employer]
== END 2022-03-27 11:22 | disposition home or self-care (01) ==
LOC: XRAY 11:21
PROVIDERS: ATTEND Orthopaedic Surgery
DX: M99.18 Subluxation complex (vertebral) of rib cage (principal); M54.50 Low back pain, unspecified
CPT/HCPCS: 72100